=== PATIENT | female | born 1965 | race Caucasian/White ===

== ENCOUNTER → 2018-06-06 10:14 | Outpatient (CLI) | payer OTHER, SELFPAY ==
--- NOTE | 2018-06-06 | DI.RAD.S_ITS ---
PROCEDURE: XR CHEST 2V INDICATIONS: NEW COUGH TECHNIQUE: 2 views of the chest were acquired. COMPARISON: None. FINDINGS: Surgical changes and devices: None. Lungs and pleura: No pleural effusions or pneumothorax. Lungs are clear. Mediastinum: Mediastinal contours are normal. Heart size is normal. Bones and chest wall: No suspicious bony abnormalities. Soft tissues appear unremarkable. IMPRESSION: Normal for age, source of current symptoms is not seen. Dictated by: Tony Hutson M.D. on 06/06/2018 at 11:15 Approved by: Tony Hutson M.D. on 06/06/2018 at 11:15
== END ==
PROVIDERS: Visit Provider Internal Medicine Hematology & Oncology
DX: R05 Cough (principal)
CPT/HCPCS: 71046

== ENCOUNTER → 2019-05-13 09:32 | Outpatient (CLI) | payer OTHER, SELFPAY | PROVIDERS: Visit Provider Internal Medicine Hematology & Oncology | DX: C50.919 Malignant neoplasm of unspecified site of unspecified female breast (principal); Z78.0 Asymptomatic menopausal state; Z79.811 Long term (current) use of aromatase inhibitors | CPT/HCPCS: 77080 ==

== ENCOUNTER 2020-04-20 05:38 | Observation (INO) | payer OTHER, SELFPAY ==
[2020-04-20] VITALS (13 sets, daily range): BP systolic 129–209; BP diastolic 81–123; PULSE 54–80; RESP 16–22; TEMP 36.4–36.7; O2SAT 92–99; BMI 25.7
--- NOTE | 2020-04-20 05:40 | ED_ITS ---
HPI - Neuro Symptoms/Deficit General Chief Complaint: Neuro Symptoms/Deficit Stated Complaint: left side of face is numb, now on left arm Time Seen by Provider: 04/20/20 05:39 Source: patient and family Mode of arrival: Ambulatory Limitations: no limitations History of Present Illness HPI Narrative: 55-year-old female nonsmoker with noncontributory medical history presents with a chief complaint gradually worsening left-sided facial numbness since yesterday morning. It has spread and now includes her neck and much of her left arm. She denies other focal neurologic findings such as blurred vision or trouble with speech. She denies any trouble with balance or coordination, she has had no extremity weakness. She denies any headache or recent injury. She has had no neck pain or overuse activities involving her left arm, hand or wrist. She denies runny nose, sore throat or cough. She has had no dietary change. Her PCP is out of [place] Onset (ago): hour(s) Location: left face and left arm History of same: No Severity: moderate Quality: numb Relieving factors: none Exacerbating factors: none Context: gradual onset On Anticoagulants: No Associated symptoms: denies other symptoms Treatments Prior to Arrival: none Related Data Home Medications Medication Instructions Recorded Confirmed alprazolam 0.25 mg PO Q12HP #0 03/24/11 escitalopram oxalate [Lexapro] 5 mg PO Q DAY #0 03/24/11 ethynodiol diac-eth estradiol #0 03/24/11 [Zovia 1/35E (28)] Allergies Allergy/AdvReac Type Severity Reaction Status Date / Time No Known Drug Allergies Allergy Verified 04/20/20 06:09 Review of Systems Constitutional Constitutional: Denies chills, Denies fatigue, Denies fever(s), Denies frequent falls, Denies lethargy and Denies weakness Eyes Eyes: Denies change in vision, Denies eye discharge, Denies irritation and Denies loss of vision ENT Ears, Nose, Mouth, and Throat: Denies change in voice, Denies dizziness, Denies neck pain, Denies sore throat and Denies throat swelling Cardiovascular Cardiovascular: Denies chest pain, Denies irregular heart rhythm, Denies l ightheadedness, Denies palpitations, Denies dyspnea, Denies dyspnea on exertion and Denies orthopnea Respiratory Respiratory: Denies cough, Denies dyspnea, Denies dyspnea on exertion and Denies wheezing Gastrointestinal Gastrointestinal: Denies abdominal pain, Denies change in bowel habits, Denies diarrhea, Denies nausea and Denies vomiting Musculoskeletal Musculoskeletal: Denies neck pain and Reports numbness Integumentary/Breasts Skin/Breast: Denies pruritus, Denies erythema, Denies rash and Denies wounds Neurologic Neurologic: Denies behavioral changes, Denies confusion, Denies dizziness, Denies frequent falls, Denies loss of vision, Reports numbness and Denies weakness Psychiatric Psychiatric: Denies anxiety, Denies behavioral changes, Denies confusion, Denies depression, Denies homicidal ideation and Denies suicidal ideation Endocrine Endocrine: Denies fatigue, Denies flushing and Denies palpitations Hematologic/Lymphatic Hematologic/Lymphatic: Denies easy bruising Allergic/Immunologic Allergic/Immunologic: Denies urticaria, Denies throat swelling and Denies wheezing Patient History Social History Smoking Status: Never smoker Smoking Status: Never smoker alcohol intake frequency: 0-2 drinks per day Substance Use Type: does not use Exam Narrative Exam Narrative: GENERAL: [55] year old patient appears stated age. Well- nourished, well-developed patient, in mild distress. Anxious HEAD: Atraumatic. Normocephalic. EYES: Pupils equal round and reactive. Extraocular motions intact. No scleral icterus. No injection or drainage. ENT: Nose without bleeding, purulent drainage. Throat without erythema, tonsillar hypertrophy or exudate. Airway patent. NECK: Trachea midline. Non tender CARDIOVASCULAR: Regular rate and rhythm without murmurs, gallops, or rubs. RESPIRATORY: Clear to auscultation. Breath sounds equal bilaterally. No wheezes, rales, or rhonchi. GASTROINTESTINAL: Abdomen soft, non-tender, nondistended. EXTREMITIES: No edema or joint tenderness. BACK: Nontender without deformity or crepitance. No flank tenderness. NEURO: AOx3. SKIN: No rash or erythema of visible areas Initial Vital Signs Initial Vital Signs: Vital Signs Pulse Rate 63 04/20/20 05:44 Pulse Oximetry 96 04/20/20 05:44 Scores NIH Stroke Scale Level of Conciousness: Alert, keenly responsive Ask month/age: Answers both questions correctly. Open/close eyes, close hand: Performs both tasks correctly Best gaze horizontal: Normal Visual tam: No visual loss Facial palsy: Normal symetrical movement Left arm drift: No drift for full 10 sec Right arm drift: No drift for full 10 sec Left leg drift: No drift for full 10 sec Right leg drift: No drift for full 10 sec Limb ataxia: Absent Sensory on face/arms/legs: Mild to moderate sensory loss, can tell touch Best language: No aphasia, normal Dysarthria: Normal Extinction or inattention: No abnormality Total NIH Stroke scale score: 1 Course Course Course Narrative: patient not activated as code stroke as she is outside of TPA window and does not have significant LAMS score Orders Ordered: ED Orders 04/20/20 EKG-12 Lead Stat 04/20/20 05:50 Basic Metabolic Panel Stat Complete Blood Count AUTO DIFF Stat Partial Thromboplastin Time Stat Prothrombin Time INR Stat 04/20/20 05:58 CT head/brain wo con Stat EKG-12 Lead Stat 04/20/20 06:00 CT angio head and neck Stat 04/20/20 07:05 Urine Drug Screen, Rapid Stat Sodium Chloride (Normal Saline 0.9%) 1,000 mls @ 150 mls/hr IV CONT SCARLETT Last Admin: 04/20/20 06:08 Dose: 150 mls/hr Documented by: RAUL Discontinued Medications Aspirin (Aspirin Chew) 324 mg PO NOW ONE Stop: 04/20/20 06:01 Last Admin: 04/20/20 06:08 Dose: 324 mg Documented by: RAUL Vital Signs Vital signs: Vital Signs - 8 hr 04/20/20 05:44 04/20/20 05:46 04/20/20 05:55 Temperature 98.1 F Pulse Rate 63 63 59 L Respiratory Rate 18 20 Blood Pressure 209/112 H 174/99 H Pulse Oximetry 96 95 96 04/20/20 06:00 04/20/20 06:28 04/20/20 06:30 Temperature Pulse Rate 58 L 55 L 57 L Respiratory Rate 18 22 19 Blood Pressure 168/112 H 143/81 H 149/86 H Pulse Oximetry 95 95 94 04/20/20 07:00 Temperature Pulse Rate 55 L Respiratory Rate 18 Blood Pressure 144/87 H Pulse Oximetry 92 MDM - Neuro Symptoms/Deficit Lab Data Result diagrams: 04/20/20 05:50 04/20/20 05:50 Labs: Lab Results 04/20/20 04/20/20 04/20/20 Range/Units 05:50 05:50 05:50 WBC 4.4 L (4.5-11.0) X10^3/uL RBC 4.34 (4.0-5.2) X10^6/uL Hgb 14.3 (12.0-16.0) g/dL Hct 42.1 (36-46) % MCV 97.0 (80-100) fL MCH 32.9 (26-34) PG MCHC 33.9 (30-36) % RDW 12.8 (11.6-14.8) % Plt Count 217 (150-400) X10^3/uL Neut % (Auto) 29.7 L (50-75) % Lymph % (Auto) 56.3 H (25-40) % [place] % (Auto) 10.3 (3-14) % Eos % (Auto) 3.0 (2-4) % Baso % (Auto) 0.7 (0-2) % Neut # (Auto) 1300 L (8268-4507) /uL Lymph # (Auto) 2500 (6632-0031) /uL [place] # (Auto) 400 (0-900) /uL Eos # (Auto) 100 (0-450) /uL Baso # (Auto) 0 (0-100) /uL PT 10.9 (10.1-12.7) SECONDS INR 1.0 (0.9-1.3) APTT 34 (26.4-36.2) SECONDS Sodium 142 (137-145) mmol/L Potassium 4.2 (3.4-5.1) mmol/L Chloride 105 (98-107) mmol/L Carbon Dioxide 29 (22-32) mmol/L BUN 10 (7-17) mg/dL Creatinine 0.50 L (0.52-1.04) mg/dL Estimated GFR > 60.0 (>60) mL/min BUN/Creatinine Ratio 20.0 (6-22) Glucose 88 (70-100) mg/dL Calcium 9.9 (8.4-10.2) mg/dL U Opiates 300ng/mL cut (Negative) Ur Oxycodone Screen (Negative) Urine Methadone Screen (Negative) Ur Barbiturates Screen (Negative) U Tricyclic Antidepress (Negative) Ur Phencyclidine Scrn (Negative) Ur Amphetamines Screen (Negative) U Methamphetamines Scrn (Negative) Ur MDMA Scrn (Ecstasy) (Negative) U Benzodiazepines Scrn (Negative) Urine Cocaine Screen (Negative) U Marijuana (THC) Screen (Negative) 04/20/20 Range/Units 07:05 WBC (4.5-11.0) X10^3/uL RBC (4.0-5.2) X10^6/uL Hgb (12.0-16.0) g/dL Hct (36-46) % MCV (80-100) fL MCH (26-34) PG MCHC (30-36) % RDW (11.6-14.8) % Plt Count (150-400) X10^3/uL Neut % (Auto) (50-75) % Lymph % (Auto) (25-40) % [place] % (Auto) (3-14) % Eos % (Auto) (2-4) % Baso % (Auto) (0-2) % Neut # (Auto) (8589-3571) /uL Lymph # (Auto) (8788-8861) /uL [place] # (Auto) (0-900) /uL Eos # (Auto) (0-450) /uL Baso # (Auto) (0-100) /uL PT (10.1-12.7) SECONDS INR (0.9-1.3) APTT (26.4-36.2) SECONDS Sodium (137-145) mmol/L Potassium (3.4-5.1) mmol/L Chloride (98-107) mmol/L Carbon Dioxide (22-32) mmol/L BUN (7-17) mg/dL Creatinine (0.52-1.04) mg/dL Estimated GFR (>60) mL/min BUN/Creatinine Ratio (6-22) Glucose (70-100) mg/dL Calcium (8.4-10.2) mg/dL U Opiates 300ng/mL cut Negative (Negative) Ur Oxycodone Screen Negative (Negative) Urine Methadone Screen Negative (Negative) Ur Barbiturates Screen Negative (Negative) U Tricyclic Antidepress Negative (Negative) Ur Phencyclidine Scrn Negative (Negative) Ur Amphetamines Screen Negative (Negative) U Methamphetamines Scrn Negative (Negative) Ur MDMA Scrn (Ecstasy) Negative (Negative) U Benzodiazepines Scrn Negative (Negative) Urine Cocaine Screen Negative (Negative) U Marijuana (THC) Screen Negative (Negative) Point of Care Testing Glucose POC 90 Urine Dip Bedside Urine Glucose Negative Bedside Urine Bilirubin - Negative Bedside Urine Ketone - Negative Urine Specific [place] 1.010 Bedside Urine Occult Blood - Negative Bedside Urine pH 6.0 Bedside Urine Protein - Negative Bedside Urine Urobilinogen - Negative Bedside Urine Nitrite - Negative Bedside Urine Leukocytes - Negative Esterase Imaging Data CT scan - head: Attestation: I personally reviewed and interpreted this imaging study as follows: My Impression: No bleed Radiologist's Impression: NAP CTA Head/Neck: Radiologist's Impression: Normal CTA Head Normal CTA Neck Discharge Plan Departure Patient Disposition: Admitted as Observation Clinical Impression: Cerebrovascular accident
--- NOTE | 2020-04-20 05:58 | DI.CT.S_ITS ---
PROCEDURE: CT HEAD/BRAIN WO CON INDICATIONS: left face, neck, numbness TECHNIQUE: Noncontrast 4.5 mm thick angled axial sections acquired from the foramen magnum to the vertex, with coronal and sagittal reformats. For radiation dose reduction, the following was used: automated exposure control, adjustment of mA and/or kV according to patient size. COMPARISON: None. FINDINGS: Image quality: Excellent. CSF spaces: Basal cisterns are patent. No extra-axial fluid collections. The ventricles are symmetric in size and shape. Brain: No intracranial bleeds or masses. There is cerebral volume loss for age, with resultant ventricular and sulcal prominence. There are periventricular and deep white matter chronic small vessel ischemic changes. There is intracranial internal carotid artery atherosclerosis. Skull and face: Calvarium and visualized facial bones appear intact, without suspicious lesions. Sinuses: Visualized sinuses and mastoids are clear. IMPRESSION: No acute intracranial disease process. Dictated by: Vashti Corona MD, PhD on 04/20/2020 at 7:13 Approved by: Vashti Corona MD, PhD on 04/20/2020 at 7:14
--- NOTE | 2020-04-20 06:00 | DI.CT.S_ITS ---
PROCEDURE: CT ANGIO HEAD AND NECK INDICATIONS: left face, neck, numbness TECHNIQUE: Pre-contrast 4.5 mm thick sections acquired from the foramen magnum to the vertex. After the administration of intravenous contrast, 1 mm thick sections acquired from the aortic arch through the [place] of [place]. Post-contrast 4.5 mm thick sections then re-acquired from the foramen magnum to the vertex. 3-dimensional jshigbe-gefisawvb-iexpkvuktf (MIP) and/or volume rendering reformats were acquired of the central intracranial vasculature and neck separately. COMPARISON: [facility], CT, CT HEAD/BRAIN WO CON, 04/20/2020, 6:08. FINDINGS: Image quality: Excellent. BRAIN: CSF spaces: Ventricles are normal in size and shape. Basal cisterns are patent. No extra-axial fluid collections. Brain: No midline shift. No intracranial bleeds or masses. Shah-white matter interface appears intact. Skull and face: Calvarium and facial bones appear intact, without suspicious lesions. Orbits appear normal. Sinuses: Sinuses and mastoids are clear. HEAD CT ANGIOGRAPHY: Anterior circulation: Intracranial internal carotid arteries are normal in size and flow. The flow within the paired anterior cerebral arteries is normal and symmetric. The flow within the middle cerebral arteries is normal and symmetric. The anterior communicating artery is seen. No aneurysms are seen. Posterior circulation: Visualized portions of the vertebral arteries demonstrate normal caliber, and join to form a normal appearing basilar artery. Flow within the posterior cerebral arteries is normal and symmetric. No aneurysms are seen. Dural sinuses demonstrate normal postcontrast enhancement. NECK CT ANGIOGRAPHY: Carotid system: The great vessels demonstrate a conventional anatomy as they arise from the aortic arch. The origins of the common carotid arteries appear patent. The common carotid arteries demonstrate normal caliber and courses. The bifurcation regions are both widely patent. The internal carotid arteries demonstrate normal calibers. Incidental note made of a bilateral pharyngeal loops in the cervical segment of the vertebral arteries bilaterally. Posterior circulation: The origins of the vertebral arteries both appear widely patent. The more superior extracranial portions of both vertebral arteries also demonstrate normal courses and calibers. They join to form a normal appearing basilar artery. Soft tissues: Visualized neck soft tissues demonstrate no suspicious abnormalities. Bones: No suspicious bony lesions. Spine degenerative disc disease and facet arthropathy. Visualized cervical spine appears normally aligned. IMPRESSION: 1. No acute intracranial disease process. 2. No large vessel occlusion, hemodynamically significant vascular stenosis, vascular dissection or aneurysm. Any quantitative measurements of stenosis were performed using NASCET criteria. Dictated by: Vashti Corona MD, PhD on 04/20/2020 at 7:56 Approved by: Vashti Corona MD, PhD on 04/20/2020 at 8:03
[2020-04-20 06:04] LABS: Add Manual Diff / Slide Review NO; Basophils Absolute Auto 0 /uL (0-100); Basophils Percent Auto 0.7 % (0-2); Eosinophils Absolute Auto 100 /uL (0-450); Hematocrit 42.1 % (36-46); Hemoglobin 14.3 g/dL (12.0-16.0); Lymphocytes Absolute Auto 2500 /uL (1100-4500); Lymphocytes Percent Auto 56.3 % (25-40); Mean Corpuscular HGB Conc 33.9 % (30-36); Mean Corpuscular Hemoglobin 32.9 PG (26-34); Monocytes Absolute Auto 400 /uL (0-900); Monocytes Percent Auto 10.3 % (3-14); Neutrophils Absolute Auto 1300 /uL (1500-7000); Neutrophils Percent Auto 29.7 % (50-75); Platelet Count 217 X10^3/uL (150-400); Red Blood Cell Count 4.34 X10^6/uL (4.0-5.2); Red Cell Distribution Width 12.8 % (11.6-14.8); White Blood Cell Count 4.4 X10^3/uL (4.5-11.0)
[2020-04-20 06:06] LABS: Prothrombin Time 10.9 SECONDS (10.1-12.7)
[2020-04-20] MEDS: SODIUM CHLORIDE 0.9% 1,000 ML 150 ML IV (06:08)
[2020-04-20] MEDS: ASPIRIN 81 MG CHEW TAB 324 MG PO (06:08)
[2020-04-20 06:09] LABS: PTT Partial Thromboplastin Tim 34 SECONDS (26.4-36.2)
[2020-04-20 06:11] LABS: Blood Urea Nitrogen 10 mg/dL (7-17); Calcium 9.9 mg/dL (8.4-10.2); Carbon Dioxide 29 mmol/L (22-32); Chloride 105 mmol/L (98-107); Estimated Glomerular Filt Rate > 60.0 mL/min (>60); Glucose 88 mg/dL (70-100); HEMOLYSIS < 15 (0-50); Potassium 4.2 mmol/L (3.4-5.1); Sodium 142 mmol/L (137-145)
[2020-04-20 07:17] LABS: UR Morphine/Opiate cutoff 300 Negative (Negative); Ur Creatinine Normal (Normal); Ur Specific Gravity Normal (Normal); Urine Amphetamines Negative (Negative); Urine Barbiturates Negative (Negative); Urine Benzodiazepines Negative (Negative); Urine Cocaine Negative (Negative); Urine MDMA Negative (Negative); Urine Methadone Negative (Negative); Urine Methamphetamines Negative (Negative); Urine Oxycodone Negative (Negative); Urine Phencyclidine Negative (Negative); Urine Tetrahydrocannabinol Negative (Negative); Urine Tricyclic Antidepressant Negative (Negative); Urine pH Normal (Normal)
--- NOTE | 2020-04-20 07:55 | DI.MRI.S_ITS ---
PROCEDURE: MR STROKE Pre- and post-contrast brain MRI, non-contrast brain MR angiogram, pre- and postcontrast neck MR angiogram INDICATIONS: Left sided numbness of face and arm TECHNIQUE: Brain: Noncontrast axial T1 spin echo, axial T2 fast spin echo, sagittal and axial FLAIR, coronal T2 fast spin echo, axial gradient echo, axial diffusion and ADC through the brain. After the administration of contrast, axial 3D VIBE of the cranial vasculature and brain. Brain MRA: Non-contrast 3-D time of flight MR angiogram, with multiple mknnsyt-kcwakuuqr-digbiirihj (MIP) reformats performed. Neck MRA: Axial and sagittal TruFISP through the neck. Coronal dynamic MR angiogram during administration of contrast in the arterial and venous phases, with 3-dimenstional lxyrrnd-wnkjfiwpl-gblxwioqls (MIP) reformats constructed from subtraction images. COMPARISON: None. FINDINGS: Image quality: Excellent. BRAIN: CSF spaces: Ventricles are normal in size and shape. Basal cisterns are patent. No extra-axial fluid collections. Brain: No intracranial bleeds or mass effects. Shah-white matter interface is normal. Diffusion weighted images show no acute ischemic insults. Brainstem appears normal. Normal intravascular flow voids are present. No abnormal intracranial enhancement. Skull and face: Calvarial marrow signal is normal. Orbits appear normal. Sinuses: Sinuses demonstrate mild scattered frontal and ethmoid mucosal thickening. BRAIN MR ANGIOGRAM: Anterior circulation: The anterior circulation, including the anterior and middle cerebral arteries, as well as internal carotid arteries demonstrates no areas of hemodynamically significant stenosis, vascular occlusion or aneurysmal dilation. 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 Posterior circulation: The posterior circulation demonstrates vertebral artery co-dominance. Basilar artery and posterior cerebral arteries demonstrate no areas of hemodynamically significant stenosis, vascular occlusion or aneurysmal dilation. Posterior communicating arteries are within normal limits. NECK MR ANGIOGRAM: Carotids: The origins of the left and right common, internal and external carotid arteries demonstrate no areas of hemodynamically significant stenosis, vascular occlusion or aneurysmal dilation. Origins of the left and right vertebral arteries demonstrate no areas of hemodynamically significant stenosis, vascular occlusion or aneurysmal dilation. Aortic arch demonstrates conventional anatomy. Limited, visualized portions of the subclavian vasculature are unremarkable. IMPRESSION: 1. No acute intracranial process. 2. Minimal chronic microvascular ischemic changes. 3. No areas of hemodynamically significant stenosis, vascular occlusion or aneurysmal dilation within the anterior or posterior circulation. 4. No areas of hemodynamically significant stenosis, vascular occlusion or aneurysmal dilation within the neck vasculature. Dictated by: Ro Huitron M.D. on 04/20/2020 at 9:44 Approved by: Ro Huitron M.D. on 04/20/2020 at 9:48
--- NOTE | 2020-04-20 08:05 | PC.NURSE ---
Patient refusing Covid 19 swab. Repeatedly states No. I'm not having that done, turning head away from RN.
--- NOTE | 2020-04-20 09:22 | PC.NURSE ---
Day shift: Pt on unit from ED via MRI and technical buyer. Pt is A&Ox3. Steady on feet. Denies pain, chest pain or headache. Oriented to room and call light. Pt to be independent in room. Will inform MD that Pt is on unit at this time. Pt has refused the Covid 19 test at this time and in ED. Awaiting MRI results and MD orders. Pt instructed to use call liight if needing anything and Pt is agreeable to this.
[2020-04-20 11:45] LABS: COVID19 -Nasal RAPID Negative (Negative)
--- NOTE | 2020-04-20 13:03 | P.HP_ITS ---
History of Present Illness History of Present Illness Date Patient Seen: 04/20/20 Time Patient Seen: 11:30 Date of Onset of Symptoms: 04/19/20 Chief complaint: left side of face is numb, now on left arm Narrative: Liza whyte is a 55 year old female with PMH anxiety and depression, daily EtOH use who was admitted with left sided facial numbness that had been increasing since yesterday morning. Numbness started near her left ear then spre ad down to her neck. Thought it would go away but when she awoke this AM and the numbness was in her arm she came to the ER. The numbness did not spead to her tongue and she denied any weakness, numbness of her legs, slurred speech or facial droop. States it feels more tingly now and is slowly improving. She admitted to falling on a slippery floor onto her knees and outstretched arms now 3 days ago. She drinks approximately 2 beers nightly, no prior EtOH withdrawal symptoms before. Does admit to having chicken pox as a child, no shingles shot. Denies rash, fever, chills, headache, vision changes, chest pain, shortness of breath, nausea, vomiting, diarrhea, weight changes. Patient History Family & Social History Social History: household members other Prior Living Arrangements House Safety & Behavioral: Feels Safe in Current Yes Environment Been Physically Hurt or No Threatened By a Person Suicidal Ideation Description None Suicide Plan Description No Plan Tobacco & Substance use: Smoking Status Never smoker alcohol intake frequency 0-2 drinks per day Substance Use Type does not use Meds Home Medications and Allergies Home Medications Medication Instructions Recorded Confirmed Type alprazolam 0.25 mg PO Q12HP #0 03/24/11 History escitalopram oxalate [Lexapro] 5 mg PO Q DAY #0 03/24/11 History ethynodiol diac-eth estradiol #0 03/24/11 History [Zovia 35E (28)] aspirin 81 mg PO DAILY 30 Days #30 tab 04/20/20 Rx atorvastatin 40 mg PO BEDTIME 30 Days #30 tab 04/20/20 Rx Allergies Allergy/AdvReac Type Severity Reaction Status Date / Time No Known Drug Allergies Allergy Verified 04/20/20 06:09 Review of Systems Review of Systems ROS: Yes All systems reviewed with the patient and are negative except as otherwise documented Exam Vital Signs (past 8 hours): - 04/20/20 05:44 04/20/20 05:46 04/20/20 05:55 Temperature 98.1 F Pulse Rate 63 63 59 L Respiratory Rate 18 20 Blood Pressure 209/112 H 174/99 H Pulse Oximetry 96 95 96 04/20/20 06:00 04/20/20 06:28 04/20/20 06:30 Temperature Pulse Rate 58 L 55 L 57 L Respiratory Rate 18 22 19 Blood Pressure 168/112 H 143/81 H 149/86 H Pulse Oximetry 95 95 94 04/20/20 07:00 04/20/20 07:08 04/20/20 07:30 Temperature Pulse Rate 55 L 54 L 56 L Respiratory Rate 18 18 16 Blood Pressure 144/87 H 179/88 H 182/93 H Pulse Oximetry 92 94 93 04/20/20 08:00 04/20/20 09:40 Temperature 97.6 F Pulse Rate 61 67 Respiratory Rate 20 16 Blood Pressure 163/123 H 155/91 H Pulse Oximetry 94 95 Oxygen Delivery Method Room Air Oxygen Flow Rate 0 Narrative Exam Narrative: GENERAL APPEARANCE: Well developed, well nourished, in no acute distress. SKIN: Inspection of the skin reveals no rashes, ulcerations or petechiae. HEENT: Normocephalic atraumatic, extraocular muscles are intact, oropharynx is clear and mucous membranes are moist, neck is supple without adenopathy NECK: Supple and symmetric. There was no thyroid enlargement, and no tenderness, or masses were felt. CHEST: Normal AP diameter and normal contour without any kyphoscoliosis. LUNGS: Auscultation of the lungs revealed no wheezes, rhonchi, or rales. CARDIOVASCULAR: There was a regular rate and rhythm without any murmurs, gallops, rubs. Peripheral pulses were 2+ and symmetric. ABDOMEN: Soft and nontender with normal bowel sounds. No ascites was noted. MUSCULOSKELETAL: There was no tenderness or effusions noted. Muscle strength and tone were normal. Very tight left trapezius muscle and paraspinal musculature. Negative spurlings test. EXTREMITIES: No cyanosis, clubbing or edema. NEUROLOGIC: Alert and oriented x 3. Normal affect. Gait was normal. Strength is +5/5 in the Upper Extremities and Lower Extremities Bilaterally. Sensation to touch was reportedly diminished but not absent from her right upper arm but not distally, near her left ear and cheek but not more midline such as under her lip or eyebrow. Objective Labs Result Diagrams: 04/20/20 05:50 04/20/20 05:50 Labs: Laboratory Results - last 24 hr 04/20/20 04/20/20 04/20/20 05:50 05:50 05:50 WBC 4.4 L RBC 4.34 Hgb 14.3 Hct 42.1 MCV 97.0 MCH 32.9 MCHC 33.9 RDW 12.8 Plt Count 217 Neut % (Auto) 29.7 L Lymph % (Auto) 56.3 H [place] % (Auto) 10.3 Eos % (Auto) 3.0 Baso % (Auto) 0.7 Neut # (Auto) 1300 L Lymph # (Auto) 2500 [place] # (Auto) 400 Eos # (Auto) 100 Baso # (Auto) 0 PT 10.9 INR 1.0 APTT 34 Sodium 142 Potassium 4.2 Chloride 105 Carbon Dioxide 29 BUN 10 Creatinine 0.50 L Estimated GFR > 60.0 BUN/Creatinine Ratio 20.0 Glucose 88 Calcium 9.9 U Opiates 300ng/mL cut Ur Oxycodone Screen Urine Methadone Screen Ur Barbiturates Screen U Tricyclic Antidepress Ur Phencyclidine Scrn Ur Amphetamines Screen U Methamphetamines Scrn Ur MDMA Scrn (Ecstasy) U Benzodiazepines Scrn Urine Cocaine Screen U Marijuana (THC) Screen COVID-19 PCR 04/20/20 04/20/20 07:05 10:30 WBC RBC Hgb Hct MCV MCH MCHC RDW Plt Count Neut % (Auto) Lymph % (Auto) [place] % (Auto) Eos % (Auto) Baso % (Auto) Neut # (Auto) Lymph # (Auto) [place] # (Auto) Eos # (Auto) Baso # (Auto) PT INR APTT Sodium Potassium Chloride Carbon Dioxide BUN Creatinine Estimated GFR BUN/Creatinine Ratio Glucose Calcium U Opiates 300ng/mL cut Negative Ur Oxycodone Screen Negative Urine Methadone Screen Negative Ur Barbiturates Screen Negative U Tricyclic Antidepress Negative Ur Phencyclidine Scrn Negative Ur Amphetamines Screen Negative U Methamphetamines Scrn Negative Ur MDMA Scrn (Ecstasy) Negative U Benzodiazepines Scrn Negative Urine Cocaine Screen Negative U Marijuana (THC) Screen Negative COVID-19 PCR Negative Assessment & Plan Assessment & Plan narrative: 55 year old female who presented with facial and arm numbness a couple of days after a fall. 1. Left sided numbness - head CT and CTA unremarkable in the ER. Will rule out acute CVA with an MRI. Suspect musculoskeletal injury may be causing sensation abnormalities. There are no spinal issues noted on the initial imaging of her neck. - given 324 mg ASA in the ER. - NIHSS of 2 based on numbness symptoms only. - futher differentials include autoimmune process, but no other signs or symptoms. Nutritional deficiency although that would usually present with bilateral symptoms. Infectious process or shingles but there is no rash, fever, or obvious inflammation in that area. 2. elevated blood pressure without a diagnosis of hypertension - patient with elevated BP on admission. Will continue to follow. Continues to come down upon arrival to the floor without interventions. 3. EtOH use - patient drinks 2 beers nightly, suspect more. Will monitor for signs of symptoms of withdrawal and initiate CIWA accordingly. Code: Full, surrogate decision maker is the patient's . Dispo: admit under observation status.
--- NOTE | 2020-04-20 13:03 | PM.DS.1 ---
History of Present Illness History of Present Illness Date Patient Seen: 04/20/20 Time Patient Seen: 13:03 Chief complaint: left side of face is numb, now on left arm Narrative: Liza whyte is a 55 year old female with PMH anxiety and depression, daily EtOH use who was admitted with left sided facial numbness that had been increasing since yesterday morning. Numbness started near her left ear then spread down to her neck. Thought it would go away but when she awoke this AM and the numbness was in her arm she came to the ER. The numbness did not spead to her tongue and she denied any weakness, numbness of her legs, slurred speech or facial droop. States it feels more tingly now and is slowly improving. She admitted to falling on a slippery floor onto her knees and outstretched arms now 3 days ago. She drinks approximately 2 beers nightly, no prior EtOH withdrawal symptoms before. Does admit to having chicken pox as a child, no shingles shot. Denies rash, fever, chills, headache, vision changes, chest pain, shortness of breath, nausea, vomiting, diarrhea, weight changes. Discharge Providers Provider Date of admission: 04/20/20 07:54 Discharge Date: 04/20/20 Discharge provider: Conor Gusman DO Summary Hospital Course Discharge Diagnosis: 1. Left sided numbness, acute, present on admission 2. elevated blood pressure without a diagnosis of hypertension, present on admission 3. EtOH use, present on admission Hospital Course: Patient is a 55 year old female with PMH of anxiety, depression and EtOH use who present with left facial and arm numbness. Symptoms waxed and waned over the course of her stay. CT head, CTA head and neck, and MRI were all completely unremarkable. Patient was offered additional monitoring overnight to see if progression of symptoms but wanted to go home with precautions. Given negative MRI and distribution of numbness that does not extend over her entire facial nerve or in a dermatomal fashion I suspect this to be related to her fall several days prior and a musculoskeletal injury as that area was extremely tense and mildly tender. She was not interested in starting an antihypertensive and will follow up with her PCP next week. She was started on a baby aspirin and statin for an abundance of precaution given the presentation. I recommended that if symptoms continue she can seek out neurology evaluation via her PCP and that is she were to develop worsening symptoms or weakness or facial droop she return to the ER. She had no difficulties tolerating lunch and showed no other evidence of neurological involvement. She was discharged home with plan for PCP follow up in [place]. Exam Vital Signs (past 8 hours): - 04/20/20 05:44 04/20/20 05:46 04/20/20 05:55 Temperature 98.1 F Pulse Rate 63 63 59 L Respiratory Rate 18 20 Blood Pressure 209/112 H 174/99 H Pulse Oximetry 96 95 96 04/20/20 06:00 04/20/20 06:28 04/20/20 06:30 Temperature Pulse Rate 58 L 55 L 57 L Respiratory Rate 18 22 19 Blood Pressure 168/112 H 143/81 H 149/86 H Pulse Oximetry 95 95 94 04/20/20 07:00 04/20/20 07:08 04/20/20 07:30 Temperature Pulse Rate 55 L 54 L 56 L Respiratory Rate 18 18 16 Blood Pressure 144/87 H 179/88 H 182/93 H Pulse Oximetry 92 94 93 04/20/20 08:00 04/20/20 09:40 Temperature 97.6 F Pulse Rate 61 67 Respiratory Rate 20 16 Blood Pressure 163/123 H 155/91 H Pulse Oximetry 94 95 Oxygen Delivery Method Room Air Oxygen Flow Rate 0 Narrative Exam Narrative: GENERAL APPEARANCE: Well developed, well nourished, in no acute distress. SKIN: Inspection of the skin reveals no rashes, ulcerations or petechiae. HEENT: Normocephalic atraumatic, extraocular muscles are intact, oropharynx is clear and mucous membranes are moist, neck is supple without adenopathy NECK: Supple and symmetric. There was no thyroid enlargement, and no tenderness, or masses were felt. CHEST: Normal AP diameter and normal contour without any kyphoscoliosis. LUNGS: Auscultation of the lungs revealed no wheezes, rhonchi, or rales. CARDIOVASCULAR: There was a regular rate and rhythm without any murmurs, gallops, rubs. Peripheral pulses were 2+ and symmetric. ABDOMEN: Soft and nontender with normal bowel sounds. No ascites was noted. MUSCULOSKELETAL: There was no tenderness or effusions noted. Muscle strength and tone were normal. Very tight left trapezius muscle and paraspinal musculature. Negative spurlings test. EXTREMITIES: No cyanosis, clubbing or edema. NEUROLOGIC: Alert and oriented x 3. Normal affect. Gait was normal. Strength is +5/5 in the Upper Extremities and Lower Extremities Bilaterally. Sensation to touch was reportedly diminished but not absent from her right upper arm but not distally, near her left ear and cheek but not more midline such as under her lip or eyebrow. Objective Labs Result Diagrams: 04/20/20 05:50 04/20/20 05:50 Labs: Laboratory Results - last 24 hr 04/20/20 04/20/20 04/20/20 05:50 05:50 05:50 WBC 4.4 L RBC 4.34 Hgb 14.3 Hct 42.1 MCV 97.0 MCH 32.9 MCHC 33.9 RDW 12.8 Plt Count 217 Neut % (Auto) 29.7 L Lymph % (Auto) 56.3 H [place] % (Auto) 10.3 Eos % (Auto) 3.0 Baso % (Auto) 0.7 Neut # (Auto) 1300 L Lymph # (Auto) 2500 [place] # (Auto) 400 Eos # (Auto) 100 Baso # (Auto) 0 PT 10.9 INR 1.0 APTT 34 Sodium 142 Potassium 4.2 Chloride 105 Carbon Dioxide 29 BUN 10 Creatinine 0.50 L Estimated GFR > 60.0 BUN/Creatinine Ratio 20.0 Glucose 88 Calcium 9.9 U Opiates 300ng/mL cut Ur Oxycodone Screen Urine Methadone Screen Ur Barbiturates Screen U Tricyclic Antidepress Ur Phencyclidine Scrn Ur Amphetamines Screen U Methamphetamines Scrn Ur MDMA Scrn (Ecstasy) U Benzodiazepines Scrn Urine Cocaine Screen U Marijuana (THC) Screen COVID-19 PCR 04/20/20 04/20/20 07:05 10:30 WBC RBC Hgb Hct MCV MCH MCHC RDW Plt Count Neut % (Auto) Lymph % (Auto) [place] % (Auto) Eos % (Auto) Baso % (Auto) Neut # (Auto) Lymph # (Auto) [place] # (Auto) Eos # (Auto) Baso # (Auto) PT INR APTT Sodium Potassium Chloride Carbon Dioxide BUN Creatinine Estimated GFR BUN/Creatinine Ratio Glucose Calcium U Opiates 300ng/mL cut Negative Ur Oxycodone Screen Negative Urine Methadone Screen Negative Ur Barbiturates Screen Negative U Tricyclic Antidepress Negative Ur Phencyclidine Scrn Negative Ur Amphetamines Screen Negative U Methamphetamines Scrn Negative Ur MDMA Scrn (Ecstasy) Negative U Benzodiazepines Scrn Negative Urine Cocaine Screen Negative U Marijuana (THC) Screen Negative COVID-19 PCR Negative Discharge Plan Discharge Plan Patient Disposition: Home Discharge comment: You were admitted to the hospital briefly for further evaluation of left arm and facial numbness. Your MRI was negative for stroke. This may be secondary to musculoskeletal issues after a fall. Please follow up with your primary care provider if symptoms continue for further evaluation with neurology. Discharge orders & Medications Prescriptions: New aspirin 81 mg tablet,delayed release (DR/EC) 81 mg PO DAILY 30 Days Qty: 30 RF: 0 atorvastatin 40 mg tablet 40 mg PO BEDTIME 30 Days Qty: 30 RF: 0 Continued ethynodiol diac-eth estradiol [Zovia 1/35E (28)] 1 MG/35 MCG tablet Qty: 0 RF: 0 escitalopram oxalate [Lexapro] 5 MG tablet 5 mg PO Q DAY Qty: 0 RF: 0 alprazolam 0.25 MG tablet 0.25 mg PO Q12HP Qty: 0 RF: 0 Diet/Activity/Treatments Diet: Diet as Tolerated Activity: As tolerated Visit Report/Discharge Packet Instructions: Transient Ischemic Attack, Ischemic Stroke, High Cholesterol, How to Prevent Falls, Atorvastatin, DI for High Cholesterol-Adult Visit Report Forms: Patient Portal/API, Stroke Signs & Symptoms Discharge Data Attending Provider: Conor Gusman Admit Date/Time: 04/20/20 07:54 Discharges patient from system. Discharge Date/Time: 04/20/20 13:34
--- NOTE | 2020-04-20 13:33 | PC.NURSE ---
Day shift: Paperwork signed and all questions answered. Pt has all personal belongings and MD scripts sent to Pt's pharmacy by MD electronic.
== END 2020-04-20 13:34 | disposition home or self-care (01) ==
LOC: ED 07:46 → AC 07:54
PROVIDERS: Admitting Provider Internal Medicine; Emergency Provider Emergency Medicine; Visit Provider Internal Medicine
DX: R20.0 Anesthesia of skin (principal); R03.0 Elevated blood-pressure reading, without diagnosis of hypertension; F10.20 Alcohol dependence, uncomplicated; Z11.59 Encounter for screening for other viral diseases
CPT/HCPCS: 36415; 70450; 70496; 70498; 70548; 70553; 80048; 80305; 81003; 82962; 85025; 85610; 85730; 87635; 93005; 96360; 96361; 99285; G0378; Q9967

== ENCOUNTER → 2020-10-14 15:43 | Outpatient (CLI) | payer OTHER, SELFPAY ==
[2020-04-20 09:31] VITALS: BMI 25.7
[2020-10-14 16:47] LABS: Alanine Aminotransferase 37 IU/L (<35); Albumin 4.4 g/dL (3.5-5.0); Albumin Globulin Ratio 1.6 (1.0-2.8); Alkaline Phosphatase 87 U/L (38-126); Aspartate Aminotransferase 34 IU/L (14-36); Bilirubin Total 1.5 mg/dL (0.2-1.3); Blood Urea Nitrogen 16 mg/dL (7-17); Calcium 9.8 mg/dL (8.4-10.2); Carbon Dioxide 30 mmol/L (22-32); Chloride 99 mmol/L (98-107); Estimated Glomerular Filt Rate > 60.0 mL/min (>60); Globulin 2.8 g/dL (1.7-4.1); Glucose 99 mg/dL (70-100); HEMOLYSIS < 15 (0-50); Potassium 4.1 mmol/L (3.4-5.1); Sodium 136 mmol/L (137-145); Total Protein 7.2 g/dL (6.3-8.2)
[2020-10-14 17:03] LABS: Progesterone, Total 0.43 ng/mL
[2020-10-14 17:04] LABS: T4 Total Thyroxine 6.53 ug/dL (5.5-11.0); Vitamin D 25 Hydroxy (D3) 95.5 ng/mL (30.0-100.0)
[2020-10-14 17:36] LABS: Vitamin B12 846 pg/mL (239-931)
[2020-10-15 06:08] LABS: Triiodothyronine T3 Total 87 ng/dL (71-180)
[2020-10-16 19:55] LABS: Vitamin B6 20.2 ug/L (2.0-32.8)
[2020-10-17 19:36] LABS: Estrogen 26 pg/mL (.)
[2020-10-20 02:07] LABS: Percent Free Testosterone 2.93 % (0.50-2.80); Testosterone Free 0.23 ng/dL (0.10-0.85); Testosterone Total 7.8 ng/dL (.)
== END ==
DX: R79.89 Other specified abnormal findings of blood chemistry (principal); N95.1 Menopausal and female climacteric states; R53.83 Other fatigue; Z67.30 Type AB blood, Rh positive; E67.3 Hypervitaminosis D
CPT/HCPCS: 36415; 80053; 82306; 82607; 82672; 84144; 84207; 84402; 84403; 84436; 84443; 84480

== ENCOUNTER → 2021-07-07 10:32 | Outpatient (CLI) | payer OTHER, SELFPAY ==
[2020-04-20 09:31] VITALS: BMI 25.7
[2021-07-07 12:39] LABS: COVID19 -Nasal RAPID POSITIVE (Negative)
== END ==
PROVIDERS: Visit Provider Physician Assistant
DX: U07.1 COVID-19 (principal)
CPT/HCPCS: 87635

== ENCOUNTER → 2022-10-03 14:46 | Outpatient (CLI) | payer OTHER, SELFPAY ==
[2020-04-20 09:31] VITALS: BMI 25.7
--- NOTE | 2022-10-03 | DI.US.S_ITS ---
PROCEDURE: US EXTREMITY NONVASC UPPER LT INDICATIONS: SUPERFICIAL FOREIGN BODY IN HAND TECHNIQUE: Real-time scanning was performed of the left hand, with image documentation. COMPARISON: None. FINDINGS: Focused ultrasound examination of left palm soft tissue shows no soft tissue mass or fluid collection. No obvious foreign body is noted. IMPRESSION: No gross foreign body is seen in left hand soft tissue. No soft tissue mass or fluid collection. Dictated by: Prince Duarte M.D. on 10/03/2022 at 17:21 Approved by: Prince Duarte M.D. on 10/03/2022 at 17:23
== END ==
PROVIDERS: Referring Provider Orthopaedic Surgery Hand Surgery; Visit Provider Orthopaedic Surgery Hand Surgery
DX: S60.552A Superficial foreign body of left hand, initial encounter (principal)
CPT/HCPCS: 76882

== ENCOUNTER 2023-05-02 01:12 | Emergency (ER) | payer OTHER, SELFPAY ==
[2020-04-20 09:31] VITALS: BMI 25.7
--- NOTE | 2023-05-02 01:20 | DI.RAD.S_ITS ---
PROCEDURE: XR ANKLE LT 2V INDICATIONS: injury TECHNIQUE: 2 views of the ankle were acquired. COMPARISON: None. FINDINGS: Bones: There are mildly displaced fractures of the medial and posterior malleoli of the distal tibia. Fractures extend to the ankle mortise which demonstrates mild widening medially. No suspicious bony lesions. Soft tissues: There is a small tibiotalar joint effusion. Periarticular soft tissue swelling demonstrated at the ankle. Achilles tendon appears normal. IMPRESSION: 1. Mildly displaced fractures of the medial and posterior malleoli. Dictated by: Vinh Ludwig M.D. on 05/02/2023 at 2:19 Approved by: Vinh Ludwig M.D. on 05/02/2023 at 2:20
--- NOTE | 2023-05-02 01:20 | DI.RAD.S_ITS ---
PROCEDURE: XR TIBIA FIBULA LT 2V INDICATIONS: injury TECHNIQUE: 2 views of the tibia and fibula were acquired. COMPARISON: [facility], CR, XR ANKLE LT 2V, 05/02/2023, 1:19. FINDINGS: Bones: There is a minimally displaced fracture of the proximal fibular shaft. Mildly displaced fractures of the medial and posterior malleoli of the distal tibia extending to the tibiotalar joint are present. Soft tissues: No suspicious soft tissue calcifications or masses. IMPRESSION: 1. Minimally displaced proximal fibular fracture. 2. Mildly displaced fractures of the medial and posterior malleoli of the distal tibia. Dictated by: Vinh Ludwig M.D. on 05/02/2023 at 2:20 Approved by: Vinh Ludwig M.D. on 05/02/2023 at 2:22
[2023-05-02 01:22] VITALS: BP 154/85; PULSE 86; RESP 18; TEMP 36.6; O2SAT 94; BMI 25.8
--- NOTE | 2023-05-02 02:02 | ED.LOWEXIN ---
HPI - Extremity Injury (Lower) General Chief Complaint: Extremity Injury, Lower Stated Complaint: possible broken left ankle Time Seen by Provider: 05/02/23 02:01 Source: patient Mode of arrival: Wheelchair History of Present Illness HPI Narrative: Patient 58-year-old female without past medical history presenting today with left ankle pain. She reports that she was in the garden earlier when she twisted it some how she does not remember got up walked inside the house was able to go to bed and now is in excruciating pain and unable to bear weight. She admits that she was drinking alcohol, wine. Denies numbness or tingling no other injury. Related Data Home Medications Medication Instructions Recorded Confirmed alprazolam 0.25 mg tablet 0.25 mg PO Q12HP ##0 03/24/11 07/07/21 escitalopram oxalate 5 mg tablet 5 mg PO Q DAY ##0 03/24/11 07/07/21 (Lexapro) ethynodiol diacetate-ethinyl ##0 03/24/11 07/07/21 estradiol 1 mg-35 mcg tablet (Zovia) Previous Rx's Medication Instructions Recorded hydrocodone 5 mg-acetaminophen 325 1 tab PO Q6H PRN pain #10 tabs 05/02/23 mg tablet Allergies Allergy/AdvReac Type Severity Reaction Status Date / Time No Known Drug Allergies Allergy Verified 04/20/20 06:09 Review of Systems Review of Systems ROS Unobtainable: All systems reviewed & are unremarkable except as noted in HPI and below Patient History Social History household members: other Smoking Status: Never smoker Smoking Status: Never smoker alcohol intake frequency: 0-2 drinks per day Substance Use Type: does not use Exam Initial Vital Signs Initial Vital Signs: Vital Signs Temperature 98 F 05/02/23 01:22 Pulse Rate 86 05/02/23 01:22 Respiratory Rate 18 05/02/23 01:22 Blood Pressure 154/85 H 05/02/23 01:22 Pulse Oximetry 94 05/02/23 01:22 Oxygen Delivery Method Room Air 05/02/23 01:22 GENERAL: Alert 58-year-old female appears in pain CARDIOVASCULAR: peripheral pulses in tact, cap refill <2 sec RESPIRATORY: No respiratory distress, speaks in full sentences without difficulty EXTREMITIES: Normal range of motion, no clubbing or edema. Neurovascularly intact Left lower extremity knee is stable within normal limits tender around fibular head distal pedal pulse intact Achilles intact Tender medial malleoli NEUROLOGICAL: Cranial nerves II through XII grossly intact. Normal gait and speech. SKIN: Warm, dry, no petechiae, no rashes or lesions. Procedures Orthopedic Splinting/Casting Injury #1: Lower Extremity Injury Location: lower leg Lower Extremity Immobilizer: posterior splint and stirrup splint Other Orthopedic Equipment: crutches Post splinting neuro exam: intact and no change Post splinting vascular exam: no change Course Orders Ordered: ED Orders 05/02/23 01:20 XR ankle LT 2V Stat XR tibia fibula LT 2V Stat Discontinued Medications Hydrocodone Bitart/Acetaminophen (Hydrocodone/Acet 5/325 Tablet) 2 tab PO NOW ONE Stop: 05/02/23 02:09 Last Admin: 05/02/23 02:15 Dose: 2 tab Documented By: BERE Hydrocodone Bitart/Acetaminophen (Hydrocodone/Acet 5/325 Prepack) 1 bottle MISC SEEINSTR ONE Stop: 05/02/23 02:55 Last Admin: 05/02/23 03:04 Dose: 1 bottle Documented By: BERE Hydromorphone HCl (Hydromorphone 1 Mg Inj) 1 mg SUBCUT NOW ONE Stop: 05/02/23 02:36 Last Admin: 05/02/23 02:39 Dose: 1 mg Documented By: BERE Vital Signs Vital signs: Vital Signs - 8 hr 05/02/23 01:22 05/02/23 03:26 Temperature 98 F 97.8 F Pulse Rate 86 84 Respiratory Rate 18 18 Blood Pressure 154/85 H 144/82 H Pulse Oximetry 94 98 Oxygen Delivery Method Room Air Room Air MDM - Extremity Injury (Lower) Imaging Data Extremity x-ray #1: Radiologist's Impression: PROCEDURE:? XR ANKLE LT 2V ? INDICATIONS:? injury ? TECHNIQUE:? 2 views of the ankle were acquired.? ? COMPARISON:? None. ? FINDINGS:? ? Bones:? There are mildly displaced fractures of the medial and posterior malleoli of the distal tibia.? Fractures extend to the ankle mortise which demonstrates mild widening medially.? No suspicious bony lesions.? ? Soft tissues:? There is a small tibiotalar joint effusion.? Periarticular soft tissue swelling demonstrated at the ankle.? Achilles tendon appears normal.? ? ? IMPRESSION:? ? 1. Mildly displaced fractures of the medial and posterior malleoli.? ? ? Dictated by: Vinh Ludiwg M.D. on 05/02/2023 at 2:19 ? Extremity x-ray #2: Radiologist's Impression: PROCEDURE:? XR TIBIA FIBULA LT 2V ? INDICATIONS:? injury ? TECHNIQUE:? 2 views of the tibia and fibula were acquired.? ? COMPARISON:? [facility], CR, XR ANKLE LT 2V, 05/02/2023, 1:19. ? FINDINGS:? ? Bones:? There is a minimally displaced fracture of the proximal fibular shaft.? Mildly displaced fractures of the medial and posterior malleoli of the distal tibia extending to the tibiotalar joint are present. ? Soft tissues:? No suspicious soft tissue calcifications or masses.? ? IMPRESSION:? ? 1. Minimally displaced proximal fibular fracture. ? 2. Mildly displaced fractures of the medial and posterior malleoli of the distal tibia.? ? Dictated by: Vinh Ludwig M.D. on 05/02/2023 at 2:20 ? ? Approved by: Vinh Ludwig M.D. on 05/02/2023 at 2:22 ? [facility] Narrative Medical decision making narrative: Patient 58-year-old female presents today with significant left ankle pain and fracture. She reports that she ambulated on it immediately after happened I suspect he was quite intoxicated when this happened. She is easily splinted by nursing staff re-evaluated by myself. She received Dilaudid subcutaneously along with [place]. Recommend close outpatient follow-up. Instructed her to elevate and ice as possible. Discharge Plan Departure Patient Disposition: Home Clinical Impression: Ankle fracture, left, Fracture of left proximal fibula Instructions: DI for Ankle Fracture Activity Restrictions/Additional Instructions: *You have been diagnosed with left ankle fracture *What to do: You will likely require surgery. Elevate as often as possible and ice as often as possible. The swelling definitely cause increase in pain. No weight-bearing use crutches at all times. Keep splint on at all times. *Continue to take medications as directed--> [facility] [place] 1 tablet every 4 hours or 2 tablets every 6 hours if needed for severe pain Motrin 600 mg every 6 hours needed for [id number] pain *Follow up with your primary care provider in 2-3 days or call [phone] Call orthopedics tomorrow 1st thing to schedule follow-up appointment. *Return to ER if you should have increasing pain numbness tingling weak [or] any new, worsening or concerning symptoms CONTROLLED SUBSTANCE DISCHARGE (Narcotoic/benzodiazepine/Flexeril/Phenergan) 1. You have been prescribed narcotic medications, it does have acetaminophen/Tylenol/paracetamol in it, DO NOT TAKE MORE THAN 4,00mg in 24 hours of Tylenol. TRAMADOL DOES NOT CONTAIN TYLENOL 2. Please understand that we cannot provide further refills of narcotics, benzodiazepines or controlled substances through the ED and her pain management will need to be through your provider. 3. While on these medications you cannot drive or operate heavy machinery. 4. You cannot sign legal documents or perform any duties such as this. 5. As long as you're taking opiate pain medications he should also be taking a stool softener such as Colace, Dulcolax, MiraLAX or prune juice, to help avoid constipation. Prescriptions: New hydrocodone-acetaminophen 5-325 mg tablet 1 tab PO Q6H PRN (Reason: pain) Qty: 10 0RF No Action ethynodiol diac-eth estradiol [Zovia ()] 1 MG/35 MCG tablet Qty: 0 escitalopram oxalate [Lexapro] 5 MG tablet 5 mg PO Q DAY Qty: 0 alprazolam 0.25 MG tablet 0.25 mg PO Q12HP Qty: 0 Referrals: [facility] [Provider Group] Monika Bustillo ARNP [Primary Care Provider] - Stand Alone Forms: Patient Portal/API
[2023-05-02] MEDS: HYDROCODONE/ACET 5/325 TABLET 2 TAB PO (02:15)
[2023-05-02] MEDS: HYDROMORPHONE 1 MG INJ SUBCUT (02:39)
[2023-05-02] MEDS: HYDROCODONE/ACET 5/325 PREPACK 1 BOTTLE MISC (03:04)
[2023-05-02 03:26] VITALS: BP 144/82; PULSE 84; RESP 18; TEMP 36.6; O2SAT 98
== END 2023-05-02 03:20 | disposition home or self-care (01) ==
PROVIDERS: Emergency Provider Emergency Medicine
DX: S82.892A Other fracture of left lower leg, initial encounter for closed fracture (principal); S82.402A Unspecified fracture of shaft of left fibula, initial encounter for closed fracture; X50.1XXA Overexertion from prolonged static or awkward postures, initial encounter
CPT/HCPCS: 29515; 73590; 73600; 96372; 99283; J1170

== ENCOUNTER 2023-05-14 01:39 | Inpatient (IN) | payer OTHER, SELFPAY ==
[2020-04-20 09:31] VITALS: BMI 25.7
[2023-05-14] VITALS (40 sets, daily range): BP systolic 73–114; BP diastolic 47–69; PULSE 67–111; RESP 12–29; TEMP 36.2–36.8; O2SAT 89–98; BMI 25.8
--- NOTE | 2023-05-14 01:48 | DI.CT.S_ITS ---
PROCEDURE: CT ABDOMEN PELVIS W CON INDICATIONS: Weakness; diverticulitis; GI bleed, hematochezia. TECHNIQUE: After the administration of intravenous contrast, axial sections acquired from the lung bases to the pubic symphysis. Coronal and sagittal reformats were performed. For radiation dose reduction, the following was used: automated exposure control, adjustment of mA and/or kV according to patient size. COMPARISON: [facility], CT, ABDOMEN/PELVIS WITH CONTRAST, 10/07/2007, 14:57. FINDINGS: Image quality: Excellent. Lung bases: Unremarkable. Heart: No significant findings. ABDOMEN: Liver: Unremarkable. Gallbladder: Unremarkable. Biliary ducts: Unremarkable. Pancreas: Unremarkable. Spleen: Unremarkable. Adrenal Glands: Unremarkable. Kidneys and Ureters: Unremarkable. Stomach and Bowel: Stomach and small bowel are within normal limits. Appendix is not seen. No evidence of appendicitis. Colon is nondistended. Diverticulosis throughout the colon is present. There is thickening and surrounding fat stranding involving the splenic flexure of colon, as well as the descending and proximal sigmoid colon. No pericolonic abscess. Peritoneum: No pneumoperitoneum. Small amount of free fluid in the pelvis. Ventral Wall: 30 mm fat containing umbilical hernia. Abdominal Nodes: No retroperitoneal or mesenteric adenopathy by size criteria. Vessels: Aorta and inferior vena cava are normal in size. PELVIS: Pelvic Organs: Unremarkable. Bladder: Unremarkable. Pelvic Nodes: No enlarged lymph nodes. Miscellaneous: No hernias are seen. Bones: Unremarkable. IMPRESSION: 1. Diverticulitis of the colon as described above. Follow-up colonoscopy is recommended to exclude underlying neoplasm. 2. Small amount of free fluid in the pelvis. Dictated by: Bryce Nicole M.D. on 05/14/2023 at 8:59 Approved by: Bryce Nicole M.D. on 05/14/2023 at 9:01
--- NOTE | 2023-05-14 01:49 | ED_ITS ---
HPI - GI Bleed General Chief complaint: GI Bleed Stated complaint: weakness, GI bleed Time Seen by Provider: 05/14/23 01:40 History of Present Illness HPI Narrative: 58-year-old woman with a history of anxiety and depression otherwise healthy until earlier this week when she fell and broke her left ankle and tibia underwent surgical intervention and has a cast in place. She is been taking oxycodone and Tylenol to help with the pain related to her recent surgery. She was also diagnosed with acute diverticulitis and is currently on antibiotics for such. She has had previous episodes of diverticulitis. Today she is been having increasing nausea with vomiting mostly clear fluids no blood. Her left lower quadrant pain has increased significantly and she is had 3 episodes of sherly ght red blood per rectum each associated with watery brown diarrhea. With the most recent episode she felt that she was going to pass out while sitting on the toilet became tachycardic, tachypneic, diaphoretic and called 911 to be transported to the emergency department. She does not describe fevers, cough, chest pain, palpitations. Related Data Home Medications Medication Instructions Recorded Confirmed alprazolam 0.25 mg tablet 0.25 mg PO Q12HP ##0 03/24/11 07/07/21 escitalopram oxalate 5 mg tablet 5 mg PO Q DAY ##0 03/24/11 07/07/21 (Lexapro) ethynodiol diacetate-ethinyl ##0 03/24/11 07/07/21 estradiol 1 mg-35 mcg tablet (Zovia) Previous Rx's Medication Instructions Recorded hydrocodone 5 mg-acetaminophen 325 1 tab PO Q6H PRN pain #10 tabs 05/02/23 mg tablet Allergies Allergy/AdvReac Type Severity Reaction Status Date / Time No Known Drug Allergies Allergy Verified 04/20/20 06:09 Review of Systems Review of Systems Narrative: Pertinent positive and negative findings as per HPI Patient History Medical History Ankle fracture, left Cerebrovascular accident History of diverticulitis of colon Social History household members: other Smoking Status: Never smoker Smoking Status: Never smoker alcohol intake frequency: 0-2 drinks per day Substance Use Type: does not use Exam Initial Vital Signs Initial Vital Signs: Vital Signs Temperature 97.8 F 05/14/23 01:46 Pulse Rate 102 H 05/14/23 01:46 Respiratory Rate 16 05/14/23 01:46 Blood Pressure 95/65 05/14/23 01:46 Pulse Oximetry 98 05/14/23 01:46 Oxygen Delivery Method Room Air 05/14/23 01:46 General: Pale, diaphoretic, Able to give a complete and coherent history. Well-nourished well-developed HEENT: Moist mucous membranes, normal sclera with reactive pupils, Respiratory: Lungs are clear to auscultation, no wheezing no rales no rhonchi. Full and symmetrical air movement Cardiac: Tachycardic but otherwise Regular rate and rhythm no murmurs no bruits Abdomen: Significant tenderness in the left lower quadrant with some guarding, hyperactive bowel tones, left flank pain radiating into the left lower quadrant. Skin: Pale and diaphoretic, lips and buccal mucosa quite pale, no rashes Neurologic: Grossly neurologically intact with no obvious asymmetries or abnormalities Extremities: Cast in place the left lower extremity with surgical Betadine stains still notable, well perfused Psych: Cooperative, appropriate insight and affect Course Orders Ordered: ED Orders 05/14/23 01:45 Complete Blood Count AUTO DIFF Stat Comprehensive Metabolic Panel Stat Lactate (Lactic Acid) Stat Type and Screen Stat 05/14/23 01:48 CT abdomen pelvis w con Stat Urinalysis and Microscopic Stat 05/14/23 02:30 Blood Culture Stat 05/14/23 03:55 Hemoglobin and Hematocrit Stat Lactate (Lactic Acid) Stat Acetaminophen (Acetaminophen 325 Mg Tablet) 650 mg PO Q4H PRN PRN Reason: Fever/Mild Pain (1-3) Alprazolam (Alprazolam 0.25 Mg Tablet) 0.25 mg PO Q12HP SCARLETT Escitalopram Oxalate (Escitalopram 10 Mg Tablet) 5 mg PO DAILY SCARLETT Hydromorphone HCl (Hydromorphone 0.5 Mg Inj) 0.5 mg IV Q2H PRN PRN Reason: Pain, Severe (7-10) Piperacillin Sod/Tazobactam (Sod 3.375 gm/ Sodium Chloride) 100 mls @ 25 mls/hr IV Q8H SCARLETT Naloxone HCl (Naloxone 0.4 Mg/Ml Vial) 0.2 mg IV Q2MIN PRN PRN Reason: Opiate Reversal Oxycodone HCl (Oxycodone Ir 5 Mg Tablet) 5 mg PO Q4HR PRN PRN Reason: Pain, Moderate (4-6) Oxycodone HCl (Oxycodone Ir 5 Mg Tablet) 10 mg PO Q3HR PRN PRN Reason: Pain, Severe (7-10) Pantoprazole Sodium (Pantoprazole 40 Mg Vial) 20 mg IV DAILY SCARLETT Discontinued Medications Hydromorphone HCl (Hydromorphone 0.5 Mg Inj) 0.5 mg IV Q15MIN PRN PRN Reason: Pain, Last Admin: 05/14/23 03:54 Dose: 0.5 mg Documented By: Admin: 05/14/23 01:58 Dose: 0.5 mg Documented By: BERE Sodium Chloride (Normal Saline 0.9%) 1,000 mls @ 1,000 mls/hr IV BOLUS ONE Stop: 05/14/23 03:00 Last Infusion: 05/14/23 03:19 Dose: 0 mls/hr Documented By: Admin: 05/14/23 02:05 Dose: 1,000 mls/hr Documented By: BERE Sodium Chloride (Normal Saline 0.9%) 1,000 mls @ 1,000 mls/hr IV BOLUS ONE Stop: 05/14/23 04:36 Last Infusion: 05/14/23 04:38 Dose: 0 mls/hr Documented By: Admin: 05/14/23 03:48 Dose: 1,000 mls/hr Documented By: Piperacillin Sod/Tazobactam (Sod 4.5 gm/ Sodium Chloride) 100 mls @ 200 mls/hr IV NOW ONE Stop: 05/14/23 03:38 Last Infusion: 05/14/23 04:22 Dose: 0 mls/hr Documented By: Admin: 05/14/23 03:48 Dose: 200 mls/hr Documented By: Ondansetron HCl (Ondansetron 4 Mg/2 Ml Inj) 4 mg IV NOW ONE Stop: 05/14/23 01:49 Last Admin: 05/14/23 01:58 Dose: 4 mg Documented By: BERE Vital Signs Vital signs: Vital Signs - 8 hr 05/14/23 01:46 05/14/23 02:02 05/14/23 02:22 Temperature 97.8 F Pulse Rate 102 H 100 H Respiratory Rate 16 15 Blood Pressure 95/65 101/63 Pulse Oximetry 98 93 Oxygen Delivery Method Room Air Oxygen Flow Rate 05/14/23 02:22 05/14/23 02:30 05/14/23 02:30 Temperature Pulse Rate 86 82 Respiratory Rate 12 15 Blood Pressure 104/63 Pulse Oximetry 94 94 Oxygen Delivery Method Room Air Room Air Oxygen Flow Rate 05/14/23 03:00 05/14/23 03:00 05/14/23 03:30 Temperature Pulse Rate 89 Respiratory Rate 18 Blood Pressure 96/60 95/61 Pulse Oximetry 90 L Oxygen Delivery Method Oxygen Flow Rate 05/14/23 03:30 05/14/23 04:00 05/14/23 04:00 Temperature Pulse Rate 89 80 Respiratory Rate 19 14 Blood Pressure 97/61 Pulse Oximetry 89 L 92 Oxygen Delivery Method Room Air Nasal Cannula Oxygen Flow Rate 2 MDM - GI Bleed Lab Data 05/14/23 04:45 05/14/23 01:45 Labs: Lab Results 05/14/23 05/14/23 05/14/23 Range/Units 01:45 01:45 01:45 WBC 13.1 H (4.5-11.0) X10^3/uL RBC 3.56 L (4.0-5.2) X10^6/uL Hgb 11.6 L (12.0-16.0) g/dL Hct 33.3 L (36-46) % MCV 93.6 (80-100) fL MCH 32.7 (26-34) PG MCHC 34.9 (30-36) % RDW 12.7 (11.6-14.8) % Plt Count 449 H (150-400) X10^3/uL Neut % (Auto) 69.0 (50-75) % Lymph % (Auto) 19.5 L (25-40) % [place] % (Auto) 9.9 (3-14) % Eos % (Auto) 0.6 L (2-4) % Baso % (Auto) 1.0 (0-2) % Neut # (Auto) 9100 H (7703-9384) /uL Lymph # (Auto) 2600 (6349-8322) /uL [place] # (Auto) 1300 H (0-900) /uL Eos # (Auto) 100 (0-450) /uL Baso # (Auto) 100 (0-100) /uL Sodium 134 L (137-145) mmol/L Potassium 4.0 (3.4-5.1) mmol/L Chloride 99 (98-107) mmol/L Carbon Dioxide 24 (22-32) mmol/L BUN 12 (7-17) mg/dL Creatinine 0.57 (0.52-1.04) mg/dL Estimated GFR > 60 (>60) mL/min BUN/Creatinine Ratio 21.1 (6-22) Glucose 159 H (80-110) mg/dL Lactate (0.7-2.1) mmol/L Calcium 10.0 (8.4-10.2) mg/dL Total Bilirubin 0.8 (0.2-1.3) mg/dL AST 18 (14-36) IU/L ALT 14 (<35) IU/L Alkaline Phosphatase 71 (38-126) U/L Total Protein 6.7 (6.3-8.2) g/dL Albumin 3.6 (3.5-5.0) g/dL Globulin 3.1 (1.7-4.1) g/dL Albumin/Globulin Ratio 1.2 (1.0-2.8) Blood Type A Positive Antibody Screen Negative 05/14/23 05/14/23 05/14/23 Range/Units 01:45 03:55 03:55 WBC (4.5-11.0) X10^3/uL RBC (4.0-5.2) X10^6/uL Hgb 9.5 L (12.0-16.0) g/dL Hct 27.2 L (36-46) % MCV (80-100) fL MCH (26-34) PG MCHC (30-36) % RDW (11.6-14.8) % Plt Count (150-400) X10^3/uL Neut % (Auto) (50-75) % Lymph % (Auto) (25-40) % [place] % (Auto) (3-14) % Eos % (Auto) (2-4) % Baso % (Auto) (0-2) % Neut # (Auto) (9296-5729) /uL Lymph # (Auto) (8922-2184) /uL [place] # (Auto) (0-900) /uL Eos # (Auto) (0-450) /uL Baso # (Auto) (0-100) /uL Sodium (137-145) mmol/L Potassium (3.4-5.1) mmol/L Chloride (98-107) mmol/L Carbon Dioxide (22-32) mmol/L BUN (7-17) mg/dL Creatinine (0.52-1.04) mg/dL Estimated GFR (>60) mL/min BUN/Creatinine Ratio (6-22) Glucose (80-110) mg/dL Lactate 2.4 H 0.9 (0.7-2.1) mmol/L Calcium (8.4-10.2) mg/dL Total Bilirubin (0.2-1.3) mg/dL AST (14-36) IU/L ALT (<35) IU/L Alkaline Phosphatase (38-126) U/L Total Protein (6.3-8.2) g/dL Albumin (3.5-5.0) g/dL Globulin (1.7-4.1) g/dL Albumin/Globulin Ratio (1.0-2.8) Blood Type Antibody Screen MDM Narrative Medical decision making narrative: CC: Bright red blood per rectum, left lower quadrant pain, hypotension Complicating co-morbidities: Current diagnosis of acute diverticulitis on antibiotics, left lower extremity ankle and proximal fibula fracture post ORIF on 913 at an outside hospital Data collected from: patient, medics Social determinants of health that may influence the patients condition: Medical records reviewed: Prior stroke in March of 2020, hospital records from that are reviewed Differential considered: Diverticular bleed, diverticular abscess, intra-ab dominal abscess, perforated colon, doubt upper GI bleed Exam documented above, pertinent findings include: Hypotensive, pale, diaphoretic, significant left lower quadrant tenderness Lab Test results independently reviewed as above. Pertinent findings: CBC is notable for mild leukocytosis at 13.1 without significant left shift. Mild anemia at 11.6 and 33.3 compared to 14.3 and 42.13 years ago. MCV is normal. Chemistries show normal renal function normal liver studies Lactic acid is initially elevated at 2.4 Imaging studies independently reviewed: CT scan of the abdomen shows suspected focal acute diverticulitis of the distal descending colon. Inflammatory carcinoma can not be excluded. Small volume of free fluid in the pelvis no free air abscess or obstruction. Consultations: Dr Magana, surgery consulted. Agrees with hospitalist admission for acute diverticulitis. Patient notes that she did have a normal colonoscopy but it was greater than [address] Hanna, hospitalist, admit Treatments: Fluid resuscitation, Zosyn, 1 unit PRBC transfusion Re-evaluations: On further clarification she is actually taking Bentyl and was not started on antibiotics for the initial suspected diverticulitis. Blood pressure initially responded to fluid resuscitation that is drifting down again. Oxygen saturations are decreasing and in the 90% range at this point. It is unclear if this is developing sepsis, ongoing blood loss or simply response to parenteral narcotics however her pain is again increasing. CT scan result is available at 325 a.m. and confirms presence diverticular abscess. Additional fluid, oxygen applied, Zosyn ordered, discussion with surge on, repeat Dilaudid due to increasing left lower quadrant pain. Patient has not had any additional diarrhea or blood per rectum since arrival in the emergency department. Repeat H&H as well as lactic acid is currently pending Discussion: 58-year-old woman with recently diagnosed outpatient diverticulitis initially treated appropriately with Bentyl. Now getting worse with evidence of abscess developing without free air or perforation. Antibiotics are initiated. She notices bright red blood with liquid diarrhea with mild decrease in H&H but also did just left ankle surgery. Concern for volume loss secondary to acute bleeding as well as developing sepsis. Repeat labs: H/h drop from 11.6/33.3 to 9.5/27.2 No additional bleeding in the ER at this time. Will recheck h/h 5am after current fluid bolus copmpleted. No an indication for transfusion yet. Lactic acid decreased from 2.4 to .9 with initial fluid bolus. 5:10am 3rd h/h is 8.9/25.5. Given her soft blood pressure, obvious GI source and larger drop then I would have expected for simply hemodilution a unit of packed red blood cells will be transfused. Patient was transferred to the floor approximately 10 minutes ago. Floor nurses helped her up to a bedside commode and she had a near syncopal episode. Recommended not getting her up to the commode until blood pressures are more stable. Recommendations, findings and near syncopal episode are reviewed with the admitting hospitalist who agrees with plan for transfusion. 330 am Severe Sepsis Criteria [x ] bacterial source of infection suspected and documented [ ] 2 SIRS Criteria met [ x ] HR >90 [ ] RR >20 [ ] fever or hypothermia [ x ] leukocytosis/leukopenia/bandemia [ ] Evidence of at least 1 organ system dysfunction [ x ] Lactate > 2 [ ] BP < 90 or MAP <65, >40mm decrease from normal baseline [ ] Creat > 2.0 [ ] T. Bili > 2.0 [ ] platelet count < 100k [ ] altered mental status [ ] mechanical ventilation [ ] provider documentation of severe sepsis Severe Sepsis Determination. the patient has been screened and [ x ] DOES meet criteria for severe sepsis [ ] DOES NOT meet criteria for severe sepsis Goal directed treatment Within 3 hours [ x ] blood cx drawn prior to abx [ x ] broad spectrum abx started [ x ] lactic acid level checked [ ] lactic redrawn within 6 hours if >2.0 Septic Shock Criteria [ ] lactic > 4 at any time [ ] SBP ,90 or MAP , 65 [ ] documentation of septic shock Time Septic Shock diagnosed: [ ] Septic Shock Determination. the patient has been screened and [ ] DOES meet criteria for septic shock [ x ] DOES NOT meet criteria for septic shock Critical Care Time Critical Care Time Critical Care Time: Yes Total Critical Care Time: 33 Attestation: Critical care time is separate from other billable procedures. There is a high probability of a significant, sudden or life-threatening deterioration that requires my full and direct attention, intervention and personal management. This critical care time includes consultation with family and other consulting doctors, review of records, and interpretation of data from labs, EKGs and imaging as well as managements of lower GI bleed with need for blood transfusion, acute diverticulitis, sepsis Discharge Plan Departure Patient Disposition: Admitted As Inpatient Clinical Impression: Acute diverticulitis, Lower gastrointestinal hemorrhage, ABLA (acute blood loss anemia), Sepsis Admit Date/Time: 05/14/23 04:06 Admit Provider: Que Hanna
[2023-05-14 01:56] LABS: Add Manual Diff / Slide Review NO; Basophils Absolute Auto 100 /uL (0-100); Eosinophils Absolute Auto 100 /uL (0-450); Eosinophils Percent Auto 0.6 % (2-4); Hematocrit 33.3 % (36-46); Hemoglobin 11.6 g/dL (12.0-16.0); Lymphocytes Absolute Auto 2600 /uL (1100-4500); Lymphocytes Percent Auto 19.5 % (25-40); Mean Corpuscular HGB Conc 34.9 % (30-36); Mean Corpuscular Hemoglobin 32.7 PG (26-34); Mean Corpuscular Volume 93.6 fL (80-100); Monocytes Absolute Auto 1300 /uL (0-900); Monocytes Percent Auto 9.9 % (3-14); Neutrophils Absolute Auto 9100 /uL (1500-7000); Platelet Count 449 X10^3/uL (150-400); Red Blood Cell Count 3.56 X10^6/uL (4.0-5.2); Red Cell Distribution Width 12.7 % (11.6-14.8); White Blood Cell Count 13.1 X10^3/uL (4.5-11.0)
[2023-05-14] MEDS: ONDANSETRON 4 MG/2 ML INJ IV (01:58)
[2023-05-14] MEDS: HYDROMORPHONE 0.5 MG INJ IV ×3 (01:58→20:32)
[2023-05-14 02:03] LABS: Alanine Aminotransferase 14 IU/L (<35); Albumin 3.6 g/dL (3.5-5.0); Albumin Globulin Ratio 1.2 (1.0-2.8); Alkaline Phosphatase 71 U/L (38-126); Aspartate Aminotransferase 18 IU/L (14-36); BUN Creatinine Ratio 21.1 (6-22); Bilirubin Total 0.8 mg/dL (0.2-1.3); Blood Urea Nitrogen 12 mg/dL (7-17); Carbon Dioxide 24 mmol/L (22-32); Chloride 99 mmol/L (98-107); Estimated Glomerular Filt Rate > 60 mL/min (>60); Globulin 3.1 g/dL (1.7-4.1); Glucose 159 mg/dL (80-110); HEMOLYSIS 15 (0-50); Sodium 134 mmol/L (137-145); Total Protein 6.7 g/dL (6.3-8.2)
[2023-05-14] MEDS: SODIUM CHLORIDE 0.9% 1,000 ML 1000 ML IV ×2 (02:05→03:48)
[2023-05-14 02:23] LABS: Lactate (Lactic Acid) 2.4 mmol/L (0.7-2.1)
[2023-05-14] MEDS: PIPERACILLIN/TAZO 4.5 GM in SODIUM CHLORIDE 0.9% 100 ML IV (03:48)
[2023-05-14 04:02] LABS: Hematocrit 27.2 % (36-46); Hemoglobin 9.5 g/dL (12.0-16.0)
[2023-05-14 04:11] LABS: Lactate (Lactic Acid) 0.9 mmol/L (0.7-2.1)
[2023-05-14 04:16] LABS: Reflexed Lactate in 2 Hours Y
[2023-05-14 04:53] LABS: Hematocrit 25.5 % (36-46); Hemoglobin 8.9 g/dL (12.0-16.0)
--- NOTE | 2023-05-14 04:55 | PM.HP.1 ---
History of Present Illness History of Present Illness Date Patient Seen: 05/14/23 Chief complaint: weakness, GI bleed Narrative: 58 y/o with PMH of diverticulosis of colon, Lt ankle ORIF for fracture 2 weeks ago, anxiety, depression, TIA, who developed LLQ pain, watery diarrhea and bright red bleed x 3, felt diaphoretic, called 911 and presented to ED with diverticulitis of descending colon, with mild sepsis. She had minimal PO intake in the past few days. [facility] Medical History Ankle fracture, left Cerebrovascular accident History of diverticulitis of colon Social History household members: significant other Smoking Status: Never smoker alcohol intake: current Meds Home Medications and Allergies Home Medications Medication Instructions Recorded Confirmed Type alprazolam 0.25 mg tablet 0.25 mg PO Q12HP ##0 03/24/11 05/14/23 History escitalopram oxalate 5 mg tablet 5 mg PO Q DAY ##0 03/24/11 05/14/23 History (Lexapro) acetaminophen 500 mg tablet 1,000 mg PO Q6HR 05/14/23 05/14/23 History levothyroxine 100 mcg tablet 100 mcg PO DAILY 05/14/23 05/14/23 History (Synthroid) oxycodone 5 mg tablet 5 mg PO Q6HR pain 05/14/23 05/14/23 History Allergies Allergy/AdvReac Type Severity Reaction Status Date / Time No Known Drug Allergies Allergy Verified 04/20/20 06:09 Review of Systems Constitutional Comments: no chills or fever Cardiovascular Comments: w/o chest pain or palpitations Respiratory Comments: short of breath Gastrointestinal Comments: LLQ pain, diarrhea, blood in the stool Without vomiting Episodic nausea Poor oral intake Genitourinary Comments: w/o dysuria Musculoskeletal Comments: Lt ankle pain Neurologic Comments: negative Hematologic/Lymphatic Comments: no prior episodes of blood per rectum Exam Vital Signs (past 8 hours): - 05/14/23 01:46 05/14/23 02:02 05/14/23 02:22 Temperature 97.8 F Pulse Rate 102 H 100 H Respiratory Rate 16 15 Blood Pressure 95/65 101/63 Pulse Oximetry 98 93 Oxygen Delivery Method Room Air Oxygen Flow Rate 05/14/23 02:22 05/14/23 02:30 05/14/23 02:30 Temperature Pulse Rate 86 82 Respiratory Rate 12 15 Blood Pressure 104/63 Pulse Oximetry 94 94 Oxygen Delivery Method Room Air Room Air Oxygen Flow Rate 05/14/23 03:00 05/14/23 03:00 05/14/23 03:30 Temperature Pulse Rate 89 Respiratory Rate 18 Blood Pressure 96/60 95/61 Pulse Oximetry 90 L Oxygen Delivery Method Oxygen Flow Rate 05/14/23 03:30 05/14/23 04:00 05/14/23 04:00 Temperature Pulse Rate 89 80 Respiratory Rate 19 14 Blood Pressure 97/61 Pulse Oximetry 89 L 92 Oxygen Delivery Method Room Air Nasal Cannula Oxygen Flow Rate 2 05/14/23 04:30 05/14/23 04:30 Temperature Pulse Rate 81 Respiratory Rate 16 Blood Pressure 96/56 L Pulse Oximetry 95 Oxygen Delivery Method Oxygen Flow Rate Oxygen Delivery Method Nasal Cannula Oxygen Flow Rate 2 Const Other: laying in bed in no distress Eyes Pupils: normal by confrontation EOM: EOM intact bilaterally Resp Effort & Inspection: normal respiratory effort Cardio Rate: regular rate Rhythm: regular rhythm GI Other: w/o distension. LLQ teneder to palpation. Hyperactive sounds. Skin Other: not jaundiced, no rashes Neuro Other: w/o deficits Psych Other: lucid, appropriate mood Objective Labs 05/14/23 04:45 05/14/23 01:45 Labs: Laboratory Results - last 24 hr 05/14/23 05/14/23 05/14/23 01:45 01:45 01:45 WBC 13.1 H RBC 3.56 L Hgb 11.6 L Hct 33.3 L MCV 93.6 MCH 32.7 MCHC 34.9 RDW 12.7 Plt Count 449 H Neut % (Auto) 69.0 Lymph % (Auto) 19.5 L [place] % (Auto) 9.9 Eos % (Auto) 0.6 L Baso % (Auto) 1.0 Neut # (Auto) 9100 H Lymph # (Auto) 2600 [place] # (Auto) 1300 H Eos # (Auto) 100 Baso # (Auto) 100 Sodium 134 L Potassium 4.0 Chloride 99 Carbon Dioxide 24 BUN 12 Creatinine 0.57 Estimated GFR > 60 BUN/Creatinine Ratio 21.1 Glucose 159 H Lactate Calcium 10.0 Total Bilirubin 0.8 AST 18 ALT 14 Alkaline Phosphatase 71 Total Protein 6.7 Albumin 3.6 Globulin 3.1 Albumin/Globulin Ratio 1.2 Blood Type A Positive Antibody Screen Negative 05/14/23 05/14/23 05/14/23 01:45 03:55 03:55 WBC RBC Hgb 9.5 L Hct 27.2 L MCV MCH MCHC RDW Plt Count Neut % (Auto) Lymph % (Auto) [place] % (Auto) Eos % (Auto) Baso % (Auto) Neut # (Auto) Lymph # (Auto) [place] # (Auto) Eos # (Auto) Baso # (Auto) Sodium Potassium Chloride Carbon Dioxide BUN Creatinine Estimated GFR BUN/Creatinine Ratio Glucose Lactate 2.4 H 0.9 Calcium Total Bilirubin AST ALT Alkaline Phosphatase Total Protein Albumin Globulin Albumin/Globulin Ratio Blood Type Antibody Screen 05/14/23 04:45 WBC RBC Hgb 8.9 L Hct 25.5 L MCV MCH MCHC RDW Plt Count Neut % (Auto) Lymph % (Auto) [place] % (Auto) Eos % (Auto) Baso % (Auto) Neut # (Auto) Lymph # (Auto) [place] # (Auto) Eos # (Auto) Baso # (Auto) Sodium Potassium Chloride Carbon Dioxide BUN Creatinine Estimated GFR BUN/Creatinine Ratio Glucose Lactate Calcium Total Bilirubin AST ALT Alkaline Phosphatase Total Protein Albumin Globulin Albumin/Globulin Ratio Blood Type Antibody Screen Assessment & Plan Assessment and plan (1) Acute diverticulitis: Status: Acute (2) Lower gastrointestinal hemorrhage: Status: Acute (3) ABLA (acute blood loss anemia): Status: Acute (4) Sepsis: Qualifiers: Sepsis acute organ dysfunction status: without acute organ dysfunction Sepsis type: sepsis due to unspecified organism Qualified Code(s): A41.9 - Sepsis, unspecified organism Status: Acute (5) Fracture of left proximal fibula: Status: Acute (6) Anxiety and depression: Status: Acute (7) Hypothyroidism: Status: Acute Assessment & Plan narrative: 1. Acute Diverticulitis / Sepsis - Zosyn - clear liquids trial if tolerates, antiemetic - IVFs 2. Lower GI bleed / Acute Posthemorrhagic Anemia - 2nd to diverticulitis, presumably - colonoscopy / GI f/u once diverticulitis healed, CT findings of carcinoma as a DD - serial HH - next at 7 am, today - PRBCs prn 3. Anxiety, Depression - Lexapro, Xanax 4. Lt ankle fracture / recent ORIF - pain management - f/u with orthopedist 5. Hypothyroidism - levothyroxyne GI prophylaxis - PPI DVT prophylaxis - pharmacologic contraindicated at this point in time, SCDs
[2023-05-14 05:16] LABS: Appearance Urine UA CLEAR; Bilirubin Urine UA 1+ (NEGATIVE); Color Urine UA YELLOW; Glucose Urine UA NEGATIVE (Negative); Ketones Urine UA 1+ (NEGATIVE); Leukocyte Esterase Urine UA NEGATIVE (NEGATIVE); Nitrite Urine UA NEGATIVE (Negative); Occult Blood Urine UA 3+ (Negative); Protein Urine UA NEGATIVE (Negative); Specific Gravity Urine UA <=1.005 (1.000-1.035); Urobilinogen Urine UA 0.2 E.U./dL (0.2)
[2023-05-14 05:31] LABS: Bacteria Urine None Seen; Culture Indicated Urine Cult Not Indicated; Ictotest Urine Negative (Negative); RBC Urine 0-1/HPF (0-5/HPF); Squamous Epithelial Cell Urine 0-1 /HPF (0-5/HPF); Transitional Epi Cells Urine 0-1/HPF (0-5/HPF); WBC Urine None Seen (0-5/HPF)
[2023-05-14] MEDS: ACETAMINOPHEN 325 MG TABLET 650 MG PO ×2 (06:34→11:37)
[2023-05-14] MEDS: LEVOTHYROXINE 100 MCG TABLET PO (06:34)
[2023-05-14] MEDS: OXYCODONE IR 5 MG TABLET PO ×2 (06:34→11:35)
[2023-05-14] MEDS: SODIUM CHLORIDE 0.9% 1,000 ML 84 ML IV ×2 (06:35→20:36)
--- NOTE | 2023-05-14 07:21 | PC.NURSE ---
Patient admitted into room 221 at 0500. Patient had 4 small bloody stools with clots of blood. Patient c/o intermittent nausea, declined antiemetic. Patient c/o LLQ abd pain rated 5/10, Tylenol 650mg and [place] 1 tab given, pt fell asleep after analgesics. Patient received one unit blood, tolerated well, denies any SOB. NS infusing at 84ml/hr.
[2023-05-14] MEDS: PANTOPRAZOLE 40 MG VIAL 20 MG IV (08:23)
[2023-05-14] MEDS: PIPERACILLIN/TAZO 3.375 GM in SODIUM CHLORIDE 0.9% 100 ML IV ×2 (08:24→17:04)
[2023-05-14] MEDS: ESCITALOPRAM 10 MG TABLET 5 MG PO (08:24)
[2023-05-14 08:53] LABS: Add Manual Diff / Slide Review NO; Basophils Absolute Auto 100 /uL (0-100); Basophils Percent Auto 0.6 % (0-2); Eosinophils Absolute Auto 0 /uL (0-450); Eosinophils Percent Auto 0.2 % (2-4); Hematocrit 27.7 % (36-46); Hemoglobin 9.8 g/dL (12.0-16.0); Lymphocytes Absolute Auto 1700 /uL (1100-4500); Lymphocytes Percent Auto 18.4 % (25-40); Mean Corpuscular HGB Conc 35.3 % (30-36); Mean Corpuscular Hemoglobin 32.8 PG (26-34); Mean Corpuscular Volume 93.1 fL (80-100); Monocytes Absolute Auto 900 /uL (0-900); Monocytes Percent Auto 9.7 % (3-14); Neutrophils Absolute Auto 6700 /uL (1500-7000); Neutrophils Percent Auto 71.1 % (50-75); Platelet Count 307 X10^3/uL (150-400); Red Blood Cell Count 2.97 X10^6/uL (4.0-5.2); Red Cell Distribution Width 13.2 % (11.6-14.8); White Blood Cell Count 9.4 X10^3/uL (4.5-11.0)
[2023-05-14 09:00] LABS: BUN Creatinine Ratio 21.4 (6-22); Blood Urea Nitrogen 9 mg/dL (7-17); Calcium 8.4 mg/dL (8.4-10.2); Carbon Dioxide 24 mmol/L (22-32); Chloride 105 mmol/L (98-107); Estimated Glomerular Filt Rate > 60 mL/min (>60); Glucose 114 mg/dL (80-110); HEMOLYSIS < 15 (0-50); Potassium 4.1 mmol/L (3.4-5.1); Sodium 133 mmol/L (137-145)
--- NOTE | 2023-05-14 11:17 | CM.DANOTE ---
Reviewed chart with existing information, and patient discussed in multidisciplinary rounds this morning. Met with patient and introduced to care coordination and discharge planning. They agree to assessment. Pt is a 58 year old admitted for diverticular GIB. States she still works full-time, has had prior abnormal colonoscopy but didn?t follow up. States she saw her PCP last week for symptoms of N/V/D. 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 PCP: Monika Bustillo DME: None currently Payer: [facility] Barriers: Toleration of clear liquid diet Joana Cortez RN, CM Discharge Planning/Care Management Advanced directive, confirm from FAMILY Start: 05/14/23 06:09 Freq: Q24H Status: Active Protocol: Document 05/14/23 06:09 (Rec: 05/14/23 06:46 [id number]) Advance Directive, confirm on record Time 06:46 Person contacted patient Copy received No CM Discharge Assessment Start: 05/14/23 11:16 Freq: Status: Active Protocol: Document 05/14/23 11:16 BQ (Rec: 05/14/23 11:17 BQ [id number]) Discharge Planning Assessment Assigned Ocular Pathologist Joana Cortez RN, CM Advance Directives? Yes Advance Directives on File No History Provided By Patient Has Patient been admitted in last 30 No days? Prior Living Arrangements House Household Members significant other Type of transporation used prior to Drives own vehicle admit Independent with ADL's Yes Is patient alert and oriented? Yes Caregiver for Another No Barriers to Discharge No Discharge Plan Home Referrals Initiated None needed Whiteboard Updated in Patient Room with Yes name and ext. # of Ocular Pathologist Review Status In Process Next Review Type Continued Stay Review
[2023-05-14 14:29] LABS: Hemoglobin 8.1 g/dL (12.0-16.0)
[2023-05-14] MEDS: ALPRAZolam 0.25 MG TABLET PO (15:06)
--- NOTE | 2023-05-14 15:36 | P.DS_ITS ---
History of Present Illness History of Present Illness Chief complaint: weakness, GI bleed Narrative: Per history and physical: 58 y/o with PMH of diverticulosis of colon, Lt ankle ORIF for fracture 2 weeks ago, anxiety, depression, TIA, who developed LLQ pain, watery diarrhea and bright red bleed x 3, felt diaphoretic, called 911 and presented to ED with diverticulitis of descending colon, with mild sepsis. She had minimal PO intake in the past few days. Per my interview: Patient reports she fractured her ankle 2 weeks ago but had surgery 2 days ago. Since surgery she is been taking aspirin 325 mg twice daily along with Tylenol for pain. Her last colonoscopy was 20 years ago. She reports she had symptoms of evolving diverticulitis even prior to her surgery a couple of days ago. She notes she had some left lower quadrant pain. However, she developed some cramping and stool mixed with bright red blood last evening. Overnight, she reports it went from being mixed stool and blood to antonio blood. She describes the bleeding as ?light? earlier in the day but now reports it is getting worse. She states when she is upright she feels as though she will faint. She is not having any shortness breath or chest pain. No worsening abdominal pain. Discharge Providers Provider Date of admission: 05/14/23 04:06 Discharge Date: 05/14/23 Primary care physician: IDALIA Tolentino Consults: Dr. Ashley Magana, general surgery Discharge provider: Racquel Perdomo MD Summary Hospital Course Discharge Diagnosis: 1. Acute diverticulitis, involving the splenic flexure, descending and proximal sigmoid colon, without abscess 2. Acute lower GI bleed, likely diverticular in nature 3. Acute blood loss anemia 4. Postop day 2. From left ankle fracture repair 5. Depression/anxiety 6. Hypothyroidism Hospital Course: Patient was admitted earlier this morning after presenting to the emergency department overnight with rectal bleeding and diaphoresis in the setting of left lower quadrant pain which she suspected to be diverticulitis. She has previous history of diverticulitis but no previous history of rectal bleeding. She had 3 episodes of bloody stool overnight him diaphoretic. She transferred to the emergency department for further evaluation. In the emergency department, her initial hemoglobin was 11.6. Following some ongoing rectal bleeding, her hemoglobin did drop down to 8.9. She received 1 unit of packed red blood cells and reportedly was feeling better. By 830 this morning, her hemoglobin had stabilized at 9.8. However over the course of the afternoon as her symptoms worsen, hemoglobin was repeated and was 8.1. Additional 2 units of packed red blood cells were ordered for transfusion. I did discuss the case with Dr. Magana, General surgery, who advised patient should be transferred to higher level of care for consideration of interventional radiology for CT angio. At this, a transfer facility has not yet been identified, but is in process. Plan to obtain an ICU bed at the outlying facility. Status at Discharge Cognitive/behavioral status at discharge: at baseline, oriented Functional status at discharge: independent ambulation Overall status at discharge: patient is not back to baseline Time Spent with Patient Time spent: Greater than 30 minutes Exam Vital Signs (past 8 hours): - 05/14/23 08:23 05/14/23 12:00 05/14/23 15:20 Temperature 97.8 F 97.9 F 97.8 F Pulse Rate 72 67 83 Respiratory Rate 17 18 Blood Pressure 109/65 104/61 100/60 Pulse Oximetry 90 L 93 Oxygen Flow Rate 0 0 Oxygen Delivery Method Nasal Cannula Oxygen Flow Rate 0 Narrative Exam Narrative: GEN: Pale irritable anxious middle-aged female, Alert and oriented x 3 HEENT:NC, Face symmetric CHEST: Respiratory excursions symmetric, CTAB CV: RRR, no M/R/G, heart rate presently 83, blood pressure 100/60 ABD: Soft, tender to palpation in the left lower quadrant/ND, BT present in all 4 quadrants, no organomegaly or masses EXTR: warm, well perfused, no C/C/E, left lower extremity is in a postoperative cast SKIN: warm and dry, no rash, pale NEURO: Alert and oriented x 3, nonfocal Objective Labs 05/14/23 18:00 05/14/23 08:30 Labs: Laboratory Results - last 24 hr 05/14/23 05/14/23 05/14/23 01:45 01:45 01:45 WBC 13.1 H RBC 3.56 L Hgb 11.6 L Hct 33.3 L MCV 93.6 MCH 32.7 MCHC 34.9 RDW 12.7 Plt Count 449 H Neut % (Auto) 69.0 Lymph % (Auto) 19.[address] [place] % (Auto) 9.9 Eos % (Auto) 0.6 L Baso % (Auto) 1.0 Neut # (Auto) 9100 H Lymph # (Auto) 2600 [place] # (Auto) 1300 H Eos # (Auto) 100 Baso # (Auto) 100 Sodium 134 L Potassium 4.0 Chloride 99 Carbon Dioxide 24 BUN 12 Creatinine 0.57 Estimated GFR > 60 BUN/Creatinine Ratio 21.1 Glucose 159 H Lactate Calcium 10.0 Total Bilirubin 0.8 AST 18 ALT 14 Alkaline Phosphatase 71 Total Protein 6.7 Albumin 3.6 Globulin 3.1 Albumin/Globulin Ratio 1.2 Urine Color Urine Appearance Urine pH Ur Specific [place] Urine Protein Urine Glucose (UA) Urine Ketones Urine Occult Blood Urine Nitrate Urine Bilirubin Ur Bilirubin Confirm Urine Urobilinogen Ur Leukocyte Esterase Urine RBC Urine WBC Ur Squamous Epith Cells Ur Transition Epith Cell Urine Bacteria Ur Culture Indicated? Blood Type A Positive Antibody Screen Negative Crossmatch See Detail 05/14/23 05/14/23 05/14/23 01:45 03:55 03:55 WBC RBC Hgb 9.5 L Hct 27.2 L MCV MCH MCHC RDW Plt Count Neut % (Auto) Lymph % (Auto) [place] % (Auto) Eos % (Auto) Baso % (Auto) Neut # (Auto) Lymph # (Auto) [place] # (Auto) Eos # (Auto) Baso # (Auto) Sodium Potassium Chloride Carbon Dioxide BUN Creatinine Estimated GFR BUN/Creatinine Ratio Glucose Lactate 2.4 H 0.9 Calcium Total Bilirubin AST ALT Alkaline Phosphatase Total Protein Albumin Globulin Albumin/Globulin Ratio Urine Color Urine Appearance Urine pH Ur Specific [place] Urine Protein Urine Glucose (UA) Urine Ketones Urine Occult Blood Urine Nitrate Urine Bilirubin Ur Bilirubin Confirm Urine Urobilinogen Ur Leukocyte Esterase Urine RBC Urine WBC Ur Squamous Epith Cells Ur Transition Epith Cell Urine Bacteria Ur Culture Indicated? Blood Type Antibody Screen Crossmatch 05/14/23 05/14/23 05/14/23 04:45 05:00 08:30 WBC 9.4 RBC 2.97 L Hgb 8.9 L 9.8 L Hct 25.5 L 27.7 L MCV 93.1 MCH 32.8 MCHC 35.3 RDW 13.2 Plt Count 307 Neut % (Auto) 71.1 Lymph % (Auto) 18.[address] [place] % (Auto) 9.7 Eos % (Auto) 0.2 L Baso % (Auto) 0.6 Neut # (Auto) 6700 Lymph # (Auto) 1700 [place] # (Auto) 900 Eos # (Auto) 0 Baso # (Auto) 100 Sodium Potassium Chloride Carbon Dioxide BUN Creatinine Estimated GFR BUN/Creatinine Ratio Glucose Lactate Calcium Total Bilirubin AST ALT Alkaline Phosphatase Total Protein Albumin Globulin Albumin/Globulin Ratio Urine Color Yellow Urine Appearance Clear Urine pH 5.0 Ur Specific [place] <=1.005 Urine Protein Negative Urine Glucose (UA) Negative Urine Ketones 1+ H Urine Occult Blood 3+ H Urine Nitrate Negative Urine Bilirubin 1+ H Ur Bilirubin Confirm Negative Urine Urobilinogen 0.2 Ur Leukocyte Esterase Negative Urine RBC 0-1/hpf Urine WBC None seen Ur Squamous Epith Cells 0-1 /hpf Ur Transition Epith Cell 0-1/hpf Urine Bacteria None seen Ur Culture Indicated? Cult not indicated Blood Type Antibody Screen Crossmatch 05/14/23 05/14/23 08:30 14:25 WBC RBC Hgb 8.1 L Hct MCV MCH MCHC RDW Plt Count Neut % (Auto) Lymph % (Auto) [place] % (Auto) Eos % (Auto) Baso % (Auto) Neut # (Auto) Lymph # (Auto) [place] # (Auto) Eos # (Auto) Baso # (Auto) Sodium 133 L Potassium 4.1 Chloride 105 Carbon Dioxide 24 BUN 9 Creatinine 0.42 L Estimated GFR > 60 BUN/Creatinine Ratio 21.4 Glucose 114 H Lactate Calcium 8.4 Total Bilirubin AST ALT Alkaline Phosphatase Total Protein Albumin Globulin Albumin/Globulin Ratio Urine Color Urine Appearance Urine pH Ur Specific [place] Urine Protein Urine Glucose (UA) Urine Ketones Urine Occult Blood Urine Nitrate Urine Bilirubin Ur Bilirubin Confirm Urine Urobilinogen Ur Leukocyte Esterase Urine RBC Urine WBC Ur Squamous Epith Cells Ur Transition Epith Cell Urine Bacteria Ur Culture Indicated? Blood Type Antibody Screen Crossmatch [facility] Medical History Ankle fracture, left Cerebrovascular accident History of diverticulitis of colon Social History household members: significant other Smoking Status: Never smoker alcohol intake: current Discharge Plan Discharge Plan Patient Disposition: [facility] Discharge orders & Medications Medication counseling provided by Pharmacist: No Discharge Health Status Multidrug resistant organism: No MDRO Precautions: [place] Diet/Activity/Treatments Diet: Nothing by Mouth Activity: bed rest d/t presyncopal sxs Oxygen: as needed to keep sats>92% Visit Report/Discharge Packet Instructions: Hemoglobin, Hematocrit, Diverticulitis, Gastrointestinal Bleeding Discharge Data Primary Care Provider: Monika Bustillo VTE Deep Vein Thrombosis/Pulmonary Embolism Present on Admission: No
--- NOTE | 2023-05-14 17:58 | PC.NURSE ---
Pt moved from rm 221 to 231 after 8 episodes of bloody stools, one unit PRBC transfused over night, second unit transfusing with transfer, will admin. third unit after this is completed, VSS at this time, pt continues to be on bed shane, frequent bloody stools with many clots present, family at bedside, Providers attempting to transfer pt to higher level of care, no accepting hospitals as of yet. Spoke to blood bank, ordered 2 units PRBC to remain on hand at all times until otherwise notified. H/H remains stable at this time, will continue monitor closely for changes. Pt states that she does not feel well, this nurse reassured pt and family that we are watching pt closely. Call light within reach, pt able to make needs known, no further needs at this time
[2023-05-14 18:08] LABS: Add Manual Diff / Slide Review NO; Basophils Absolute Auto 0 /uL (0-100); Basophils Percent Auto 0.4 % (0-2); Eosinophils Absolute Auto 0 /uL (0-450); Eosinophils Percent Auto 0.4 % (2-4); Hematocrit 23.4 % (36-46); Hemoglobin 8.1 g/dL (12.0-16.0); Lymphocytes Absolute Auto 1900 /uL (1100-4500); Lymphocytes Percent Auto 23.4 % (25-40); Mean Corpuscular HGB Conc 34.6 % (30-36); Mean Corpuscular Hemoglobin 31.7 PG (26-34); Mean Corpuscular Volume 91.7 fL (80-100); Monocytes Absolute Auto 800 /uL (0-900); Monocytes Percent Auto 9.9 % (3-14); Neutrophils Absolute Auto 5300 /uL (1500-7000); Neutrophils Percent Auto 65.9 % (50-75); Platelet Count 269 X10^3/uL (150-400); Red Blood Cell Count 2.55 X10^6/uL (4.0-5.2); White Blood Cell Count 8.1 X10^3/uL (4.5-11.0)
[2023-05-14 18:51] LABS: COVID19 -Nasal RAPID Negative (Negative)
--- NOTE | 2023-05-14 19:42 | PM.CN ---
History of Present Illness Consult details Date Patient Seen: 05/14/23 Time Patient Seen: 19:43 Chief complaint: weakness, GI bleed Narrative: Mrs. Olivares Meds Home Medications and Allergies Home Medications Medication Instructions Recorded Confirmed Type alprazolam 0.25 mg tablet 0.25 mg PO Q12HP ##0 03/24/11 05/14/23 History escitalopram oxalate 5 mg tablet 5 mg PO Q DAY ##0 03/24/11 05/14/23 History (Lexapro) acetaminophen 500 mg tablet 1,000 mg PO Q6HR 05/14/23 05/14/23 History levothyroxine 100 mcg tablet 100 mcg PO DAILY 05/14/23 05/14/23 History (Synthroid) oxycodone 5 mg tablet 5 mg PO Q6HR pain 05/14/23 05/14/23 History Allergies Allergy/AdvReac Type Severity Reaction Status Date / Time No Known Drug Allergies Allergy Verified 04/20/20 06:09 Exam Vital Signs (past 8 hours): - 05/14/23 12:00 05/14/23 15:20 05/14/23 15:45 Temperature 97.9 F 97.8 F 97.3 F L Pulse Rate 67 83 95 H Respiratory Rate 17 18 18 Blood Pressure 104/61 100/60 114/66 Pulse Oximetry 93 Oxygen Flow Rate 0 05/14/23 17:00 05/14/23 17:10 05/14/23 17:11 Temperature 98 F Pulse Rate 96 H 82 Respiratory Rate 16 Blood Pressure 112/65 113/67 Pulse Oximetry Oxygen Flow Rate 05/14/23 17:11 05/14/23 17:30 05/14/23 17:30 Temperature Pulse Rate 82 84 Respiratory Rate 14 17 Blood Pressure 111/69 Pulse Oximetry 96 95 Oxygen Flow Rate 05/14/23 18:14 05/14/23 18:18 05/14/23 18:00 Temperature 98.3 F 98.3 F Pulse Rate 111 H 98 H Respiratory Rate 18 18 Blood Pressure 108/68 108/68 108/68 Pulse Oximetry Oxygen Flow Rate 05/14/23 18:00 05/14/23 18:30 05/14/23 18:30 Temperature Pulse Rate 84 97 H Respiratory Rate 16 15 Blood Pressure 102/59 L Pulse Oximetry 95 96 Oxygen Flow Rate 05/14/23 18:45 05/14/23 18:45 05/14/23 19:00 Temperature Pulse Rate 96 H Respiratory Rate 20 Blood Pressure 96/61 103/65 Pulse Oximetry 96 Oxygen Flow Rate 05/14/23 19:00 05/14/23 19:15 05/14/23 19:15 Temperature Pulse Rate 95 H 101 H Respiratory Rate 19 15 Blood Pressure 90/60 Pulse Oximetry 95 97 Oxygen Flow Rate 0 Oxygen Delivery Method Nasal Cannula Oxygen Flow Rate 0 Objective Labs 05/14/23 21:16 05/14/23 08:30 Labs: Laboratory Results - last 24 hr 05/14/23 05/14/23 05/14/23 01:45 01:45 01:45 WBC 13.1 H RBC 3.56 L Hgb 11.6 L Hct 33.3 L MCV 93.6 MCH 32.7 MCHC 34.9 RDW 12.7 Plt Count 449 H Neut % (Auto) 69.0 Lymph % (Auto) 19.5 L [place] % (Auto) 9.9 Eos % (Auto) 0.6 L Baso % (Auto) 1.0 Neut # (Auto) 9100 H Lymph # (Auto) 2600 [place] # (Auto) 1300 H Eos # (Auto) 100 Baso # (Auto) 100 Sodium 134 L Potassium 4.0 Chloride 99 Carbon Dioxide 24 BUN 12 Creatinine 0.57 Estimated GFR > 60 BUN/Creatinine Ratio 21.1 Glucose 159 H Lactate Calcium 10.0 Total Bilirubin 0.8 AST 18 ALT 14 Alkaline Phosphatase 71 Total Protein 6.7 Albumin 3.6 Globulin 3.1 Albumin/Globulin Ratio 1.2 Urine Color Urine Appearance Urine pH Ur Specific [place] Urine Protein Urine Glucose (UA) Urine Ketones Urine Occult Blood Urine Nitrate Urine Bilirubin Ur Bilirubin Confirm Urine Urobilinogen Ur Leukocyte Esterase Urine RBC Urine WBC Ur Squamous Epith Cells Ur Transition Epith Cell Urine Bacteria Ur Culture Indicated? SARS-CoV-2 (PCR) Blood Type A Positive Antibody Screen Negative Crossmatch See Detail 05/14/23 05/14/23 05/14/23 01:45 03:55 03:55 WBC RBC Hgb 9.5 L Hct 27.2 L MCV MCH MCHC RDW Plt Count Neut % (Auto) Lymph % (Auto) [place] % (Auto) Eos % (Auto) Baso % (Auto) Neut # (Auto) Lymph # (Auto) [place] # (Auto) Eos # (Auto) Baso # (Auto) Sodium Potassium Chloride Carbon Dioxide BUN Creatinine Estimated GFR BUN/Creatinine Ratio Glucose Lactate 2.4 H 0.9 Calcium Total Bilirubin AST ALT Alkaline Phosphatase Total Protein Albumin Globulin Albumin/Globulin Ratio Urine Color Urine Appearance Urine pH Ur Specific [place] Urine Protein Urine Glucose (UA) Urine Ketones Urine Occult Blood Urine Nitrate Urine Bilirubin Ur Bilirubin Confirm Urine Urobilinogen Ur Leukocyte Esterase Urine RBC Urine WBC Ur Squamous Epith Cells Ur Transition Epith Cell Urine Bacteria Ur Culture Indicated? SARS-CoV-2 (PCR) Blood Type Antibody Screen Crossmatch 05/14/23 05/14/23 05/14/23 04:45 05:00 08:30 WBC 9.4 RBC 2.97 L Hgb 8.9 L 9.8 L Hct 25.5 L 27.7 L MCV 93.1 MCH 32.8 MCHC 35.3 RDW 13.2 Plt Count 307 Neut % (Auto) 71.1 Lymph % (Auto) 18.4 L [place] % (Auto) 9.7 Eos % (Auto) 0.2 L Baso % (Auto) 0.6 Neut # (Auto) 6700 Lymph # (Auto) 1700 [place] # (Auto) 900 Eos # (Auto) 0 Baso # (Auto) 100 Sodium Potassium Chloride Carbon Dioxide BUN Creatinine Estimated GFR BUN/Creatinine Ratio Glucose Lactate Calcium Total Bilirubin AST ALT Alkaline Phosphatase Total Protein Albumin Globulin Albumin/Globulin Ratio Urine Color Yellow Urine Appearance Clear Urine pH 5.0 Ur Specific [place] <=1.005 Urine Protein Negative Urine Glucose (UA) Negative Urine Ketones 1+ H Urine Occult Blood 3+ H Urine Nitrate Negative Urine Bilirubin 1+ H Ur Bilirubin Confirm Negative Urine Urobilinogen 0.2 Ur Leukocyte Esterase Negative Urine RBC 0-1/hpf Urine WBC None seen Ur Squamous Epith Cells 0-1 /hpf Ur Transition Epith Cell 0-1/hpf Urine Bacteria None seen Ur Culture Indicated? Cult not indicated SARS-CoV-2 (PCR) Blood Type Antibody Screen Crossmatch 05/14/23 05/14/23 05/14/23 08:30 14:25 18:00 WBC 8.1 RBC 2.55 L Hgb 8.1 L 8.1 L Hct 23.4 L MCV 91.7 MCH 31.7 MCHC 34.6 RDW 14.0 Plt Count 269 Neut % (Auto) 65.9 Lymph % (Auto) 23.4 L [place] % (Auto) 9.9 Eos % (Auto) 0.4 L Baso % (Auto) 0.4 Neut # (Auto) 5300 Lymph # (Auto) 1900 [place] # (Auto) 800 Eos # (Auto) 0 Baso # (Auto) 0 Sodium 133 L Potassium 4.1 Chloride 105 Carbon Dioxide 24 BUN 9 Creatinine 0.42 L Estimated GFR > 60 BUN/Creatinine Ratio 21.4 Glucose 114 H Lactate Calcium 8.4 Total Bilirubin AST ALT Alkaline Phosphatase Total Protein Albumin Globulin Albumin/Globulin Ratio Urine Color Urine Appearance Urine pH Ur Specific [place] Urine Protein Urine Glucose (UA) Urine Ketones Urine Occult Blood Urine Nitrate Urine Bilirubin Ur Bilirubin Confirm Urine Urobilinogen Ur Leukocyte Esterase Urine RBC Urine WBC Ur Squamous Epith Cells Ur Transition Epith Cell Urine Bacteria Ur Culture Indicated? SARS-CoV-2 (PCR) Blood Type Antibody Screen Crossmatch 05/14/23 18:30 WBC RBC Hgb Hct MCV MCH MCHC RDW Plt Count Neut % (Auto) Lymph % (Auto) [place] % (Auto) Eos % (Auto) Baso % (Auto) Neut # (Auto) Lymph # (Auto) [place] # (Auto) Eos # (Auto) Baso # (Auto) Sodium Potassium Chloride Carbon Dioxide BUN Creatinine Estimated GFR BUN/Creatinine Ratio Glucose Lactate Calcium Total Bilirubin AST ALT Alkaline Phosphatase Total Protein Albumin Globulin Albumin/Globulin Ratio Urine Color Urine Appearance Urine pH Ur Specific [place] Urine Protein Urine Glucose (UA) Urine Ketones Urine Occult Blood Urine Nitrate Urine Bilirubin Ur Bilirubin Confirm Urine Urobilinogen Ur Leukocyte Esterase Urine RBC Urine WBC Ur Squamous Epith Cells Ur Transition Epith Cell Urine Bacteria Ur Culture Indicated? SARS-CoV-2 (PCR) Negative Blood Type Antibody Screen Crossmatch [facility] Medical History Ankle fracture, left Cerebrovascular accident History of diverticulitis of colon Social History household members: significant other Tobacco & Substance Use Smoking Status: Never smoker alcohol intake: current Assessment & Plan Assessment & Plan narrative: Discussed with Dr. Perdomo and patient is having what is likely a diverticular bleed. She has had 1 unit of blood and I think that she would be best served by transferring in this. Where she may become worse rather than continuing to observe at [facility]. I will keep a close eye on her and if she begins to bleed profusely we can proceed with a total colectomy to stop the bleeding but would rather have her at a institution that has access to angiography or advanced endoscopy to try to localize the bleeding. I personally have not had success with using a colonoscope in the setting of active or recent bleeding to stop a diverticular bleed. I discussed this with the patient and her family at the bedside and they agree with this plan. Meanwhile I will have her be an observational ICU status and continue to check q.2 hours H and H is while we worked to transfer the patient.
[2023-05-14] MEDS: PROCHLORPERAZINE 10 MG/2 ML VIAL 5 MG IV (20:33)
[2023-05-14 20:39] LABS: MRSA (Nasal) PCR Not Detected (Not Detect)
[2023-05-14 21:24] LABS: Hematocrit 22.3 % (36-46); Hemoglobin 7.7 g/dL (12.0-16.0)
--- NOTE | 2023-05-14 21:28 | P.PN_ITS ---
Exam Vital Signs (past 8 hours): - 05/14/23 15:20 05/14/23 15:45 05/14/23 17:00 Temperature 97.8 F 97.3 F L 98 F Pulse Rate 83 95 H 96 H Respiratory Rate 18 18 16 Blood Pressure 100/60 114/66 112/65 Pulse Oximetry Oxygen Delivery Method Oxygen Flow Rate 05/14/23 17:10 05/14/23 17:11 05/14/23 17:11 Temperature Pulse Rate 82 82 Respiratory Rate 14 Blood Pressure 113/67 Pulse Oximetry 96 Oxygen Delivery Method Oxygen Flow Rate 05/14/23 17:30 05/14/23 17:30 05/14/23 18:14 Temperature 98.3 F Pulse Rate 84 111 H Respiratory Rate 17 18 Blood Pressure 111/69 108/68 Pulse Oximetry 95 Oxygen Delivery Method Oxygen Flow Rate 05/14/23 18:18 05/14/23 18:00 05/14/23 18:00 Temperature 98.3 F Pulse Rate 98 H 84 Respiratory Rate 18 16 Blood Pressure 108/68 108/68 Pulse Oximetry 95 Oxygen Delivery Method Oxygen Flow Rate 05/14/23 18:30 05/14/23 18:30 05/14/23 18:45 Temperature Pulse Rate 97 H Respiratory Rate 15 Blood Pressure 102/59 L 96/61 Pulse Oximetry 96 Oxygen Delivery Method Oxygen Flow Rate 05/14/23 18:45 05/14/23 19:00 05/14/23 19:00 Temperature Pulse Rate 96 H 95 H Respiratory Rate 20 19 Blood Pressure 103/65 Pulse Oximetry 96 95 Oxygen Delivery Method Oxygen Flow Rate 05/14/23 19:15 05/14/23 19:15 05/14/23 19:30 Temperature Pulse Rate 101 H Respiratory Rate 15 Blood Pressure 90/60 95/62 Pulse Oximetry 97 Oxygen Delivery Method Oxygen Flow Rate 0 05/14/23 19:30 05/14/23 19:45 05/14/23 19:45 Temperature Pulse Rate 97 H 91 H Respiratory Rate 29 H 18 Blood Pressure 102/58 L Pulse Oximetry 95 97 Oxygen Delivery Method Oxygen Flow Rate 05/14/23 20:00 05/14/23 20:00 05/14/23 20:15 Temperature 98.3 F Pulse Rate 94 H 101 H Respiratory Rate 21 21 Blood Pressure 98/58 L Pulse Oximetry 96 96 Oxygen Delivery Method Oxygen Flow Rate 0 05/14/23 20:15 05/14/23 20:30 05/14/23 20:30 Temperature Pulse Rate 100 H Respiratory Rate 17 Blood Pressure 95/58 L 96/58 L Pulse Oximetry 95 Oxygen Delivery Method Oxygen Flow Rate 05/14/23 19:00 05/14/23 19:15 05/14/23 20:45 Temperature 97.5 F L Pulse Rate 101 H 99 H Respiratory Rate 15 12 Blood Pressure 90/60 Pulse Oximetry 94 Oxygen Delivery Method Room Air Oxygen Flow Rate 05/14/23 20:45 05/14/23 21:00 05/14/23 21:00 Temperature Pulse Rate 95 H Respiratory Rate 19 Blood Pressure 73/48 L 76/47 L Pulse Oximetry 95 Oxygen Delivery Method Oxygen Flow Rate 0 05/14/23 21:15 05/14/23 21:15 Temperature Pulse Rate 104 H Respiratory Rate 20 Blood Pressure 73/47 L Pulse Oximetry 95 Oxygen Delivery Method Oxygen Flow Rate Oxygen Delivery Method Room Air Oxygen Flow Rate 0 Objective Labs 05/14/23 21:16 05/14/23 08:30 Labs: Laboratory Results - last 24 hr 05/14/23 05/14/23 05/14/23 01:45 01:45 01:45 WBC 13.1 H RBC 3.56 L Hgb 11.6 L Hct 33.3 L MCV 93.6 MCH 32.7 MCHC 34.9 RDW 12.7 Plt Count 449 H Neut % (Auto) 69.0 Lymph % (Auto) 19.5 L [place] % (Auto) 9.9 Eos % (Auto) 0.6 L Baso % (Auto) 1.0 Neut # (Auto) 9100 H Lymph # (Auto) 2600 [place] # (Auto) 1300 H Eos # (Auto) 100 Baso # (Auto) 100 Sodium 134 L Potassium 4.0 Chloride 99 Carbon Dioxide 24 BUN 12 Creatinine 0.57 Estimated GFR > 60 BUN/Creatinine Ratio 21.1 Glucose 159 H Lactate Calcium 10.0 Total Bilirubin 0.8 AST 18 ALT 14 Alkaline Phosphatase 71 Total Protein 6.7 Albumin 3.6 Globulin 3.1 Albumin/Globulin Ratio 1.2 Urine Color Urine Appearance Urine pH Ur Specific [place] Urine Protein Urine Glucose (UA) Urine Ketones Urine Occult Blood Urine Nitrate Urine Bilirubin Ur Bilirubin Confirm Urine Urobilinogen Ur Leukocyte Esterase Urine RBC Urine WBC Ur Squamous Epith Cells Ur Transition Epith Cell Urine Bacteria Ur Culture Indicated? Nasal Screen MRSA (PCR) SARS-CoV-2 (PCR) Blood Type A Positive Antibody Screen Negative Crossmatch See Detail 05/14/23 05/14/23 05/14/23 01:45 03:55 03:55 WBC RBC Hgb 9.5 L Hct 27.2 L MCV MCH MCHC RDW Plt Count Neut % (Auto) Lymph % (Auto) [place] % (Auto) Eos % (Auto) Baso % (Auto) Neut # (Auto) Lymph # (Auto) [place] # (Auto) Eos # (Auto) Baso # (Auto) Sodium Potassium Chloride Carbon Dioxide BUN Creatinine Estimated GFR BUN/Creatinine Ratio Glucose Lactate 2.4 H 0.9 Calcium Total Bilirubin AST ALT Alkaline Phosphatase Total Protein Albumin Globulin Albumin/Globulin Ratio Urine Color Urine Appearance Urine pH Ur Specific [place] Urine Protein Urine Glucose (UA) Urine Ketones Urine Occult Blood Urine Nitrate Urine Bilirubin Ur Bilirubin Confirm Urine Urobilinogen Ur Leukocyte Esterase Urine RBC Urine WBC Ur Squamous Epith Cells Ur Transition Epith Cell Urine Bacteria Ur Culture Indicated? Nasal Screen MRSA (PCR) SARS-CoV-2 (PCR) Blood Type Antibody Screen Crossmatch 05/14/23 05/14/23 05/14/23 04:45 05:00 08:30 WBC 9.4 RBC 2.97 L Hgb 8.9 L 9.8 L Hct 25.5 L 27.7 L MCV 93.1 MCH 32.8 MCHC 35.3 RDW 13.2 Plt Count 307 Neut % (Auto) 71.1 Lymph % (Auto) 18.4 L [place] % (Auto) 9.7 Eos % (Auto) 0.2 L Baso % (Auto) 0.6 Neut # (Auto) 6700 Lymph # (Auto) 1700 [place] # (Auto) 900 Eos # (Auto) 0 Baso # (Auto) 100 Sodium Potassium Chloride Carbon Dioxide BUN Creatinine Estimated GFR BUN/Creatinine Ratio Glucose Lactate Calcium Total Bilirubin AST ALT Alkaline Phosphatase Total Protein Albumin Globulin Albumin/Globulin Ratio Urine Color Yellow Urine Appearance Clear Urine pH 5.0 Ur Specific [place] <=1.005 Urine Protein Negative Urine Glucose (UA) Negative Urine Ketones 1+ H Urine Occult Blood 3+ H Urine Nitrate Negative Urine Bilirubin 1+ H Ur Bilirubin Confirm Negative Urine Urobilinogen 0.2 Ur Leukocyte Esterase Negative Urine RBC 0-1/hpf Urine WBC None seen Ur Squamous Epith Cells 0-1 /hpf Ur Transition Epith Cell 0-1/hpf Urine Bacteria None seen Ur Culture Indicated? Cult not indicated Nasal Screen MRSA (PCR) SARS-CoV-2 (PCR) Blood Type Antibody Screen Crossmatch 05/14/23 05/14/23 05/14/23 08:30 14:25 18:00 WBC 8.1 RBC 2.55 L Hgb 8.1 L 8.1 L Hct 23.4 L MCV 91.7 MCH 31.7 MCHC 34.6 RDW 14.0 Plt Count 269 Neut % (Auto) 65.9 Lymph % (Auto) 23.4 L [place] % (Auto) 9.9 Eos % (Auto) 0.4 L Baso % (Auto) 0.4 Neut # (Auto) 5300 Lymph # (Auto) 1900 [place] # (Auto) 800 Eos # (Auto) 0 Baso # (Auto) 0 Sodium 133 L Potassium 4.1 Chloride 105 Carbon Dioxide 24 BUN 9 Creatinine 0.42 L Estimated GFR > 60 BUN/Creatinine Ratio 21.4 Glucose 114 H Lactate Calcium 8.4 Total Bilirubin AST ALT Alkaline Phosphatase Total Protein Albumin Globulin Albumin/Globulin Ratio Urine Color Urine Appearance Urine pH Ur Specific [place] Urine Protein Urine Glucose (UA) Urine Ketones Urine Occult Blood Urine Nitrate Urine Bilirubin Ur Bilirubin Confirm Urine Urobilinogen Ur Leukocyte Esterase Urine RBC Urine WBC Ur Squamous Epith Cells Ur Transition Epith Cell Urine Bacteria Ur Culture Indicated? Nasal Screen MRSA (PCR) SARS-CoV-2 (PCR) Blood Type Antibody Screen Crossmatch 05/14/23 05/14/23 05/14/23 18:30 18:30 21:16 WBC RBC Hgb 7.7 L Hct 22.3 L MCV MCH MCHC RDW Plt Count Neut % (Auto) Lymph % (Auto) [place] % (Auto) Eos % (Auto) Baso % (Auto) Neut # (Auto) Lymph # (Auto) [place] # (Auto) Eos # (Auto) Baso # (Auto) Sodium Potassium Chloride Carbon Dioxide BUN Creatinine Estimated GFR BUN/Creatinine Ratio Glucose Lactate Calcium Total Bilirubin AST ALT Alkaline Phosphatase Total Protein Albumin Globulin Albumin/Globulin Ratio Urine Color Urine Appearance Urine pH Ur Specific [place] Urine Protein Urine Glucose (UA) Urine Ketones Urine Occult Blood Urine Nitrate Urine Bilirubin Ur Bilirubin Confirm Urine Urobilinogen Ur Leukocyte Esterase Urine RBC Urine WBC Ur Squamous Epith Cells Ur Transition Epith Cell Urine Bacteria Ur Culture Indicated? Nasal Screen MRSA (PCR) Not detected SARS-CoV-2 (PCR) Negative Blood Type Antibody Screen Crossmatch [facility] Medical History Ankle fracture, left Cerebrovascular accident History of diverticulitis of colon Social History household members: significant other Smoking Status: Never smoker alcohol intake: current Assessment & Plan Assessment and plan (1) Acute diverticulitis: Status: Acute (2) Lower gastrointestinal hemorrhage: Status: Acute (3) ABLA (acute blood loss anemia): Status: Acute Plan Accepted for transfer to [facility] Discussed with respite coordinator and accepting hospitalist. Stable for transfer. Received 2 PRBCs and getting started third unit. SBP 95-105 since the admission. NS currently at 80 cc / h. Quality VTE Deep Vein Thrombosis/Pulmonary Embolism Present on Admission: No
--- NOTE | 2023-05-14 22:41 | PC.NURSE ---
1900- Pt is unstable at this time we are waiting for transfer out to a higher level of care. Blood VS entered in chart. 1999-3rd unit of PRBC's completed. will recheck H&H at 2099 2029-Pt complaints of pain in Lt upper and Lower quads of abdomen and nausea. PRN medications given IV. Pt is strict NPO at this time. 2044-Pt is very pale and has had several large mulberry stools with large clots noted. Approximately 1700ml of blood since 1899. B/P is low x 3 readings. 73/48, 76/47, 73/47 feel pt's bleeding is worsening. MD made aware of pt's condition and physical changes. stat H&H drawn waiting for results. Pt distal pulses weak and cool at this time. Pt abdominal pain is better but moderate cramping still present. 2099- H&H 7.7/22.5 4th unit of PRBC's sent for will hang prior to transfer. Pt has been accepted to [facility] and will be transferred ACLS with Air transport. 2114- Air team will be here within 10 minutes. 4th PRBC's hung 2 RN verified see chart with VS. Pt remains with soft pressure at this time. HR 104 2129- Air team here to transport Pt. All pt records handed to air team. All pt belongings sent with Pat SO. Bedside report given to flight team. Pt had another large mulberry stool with clots before being transferred to stretcher. 2144- 5th unit of PRBC's sent with flight team for next infusion. 2199-Pt left facility with flight team and chart. all questions answered. Pt was somewhat stable for transfer at present. Pt Last B/P 92/53 P-108 2209-Report called to accepting facility Kavin at [facility] [phone]. Accepting MD is Dr. Leon
--- NOTE | 2023-05-15 07:43 | PC.NURSE ---
Late Entry Event Note 05/14 Patient stable through beginning of shift after completion of 1u of PRBCs. Able to ambulate with crutches to bathroom without difficulty. 1100- patient began having several antonio blood liquid bowel movements with clots. 1400- Patient became symptomatic after ambulating to bathroom, expressed feeling dizzy while laying in bed, patient pale and diaphoretic, VSS stable. hospitalist notified. STAT hemoglobin ordered. 1425- Hemoglobin 8.1, patient with continual antonio blood liquid stool with clots, continued complaint of not feeling well, BP soft with map of 60. Family complaint of lack of physician presence, family updated, hospitalist updated and notified. Hospitalist call out to consulting general surgeon. 1504- Order for blood transfusion 1506- PRN Xanax given after patient request, patient anxious stating I feel like I'm going to 1527- Blood transfusion initiated by this RN, hospitalist and consulting general surgeon at bedside to update family on patient condition and plan. Per MDs recommendation to transfer patient to higher level care facility due to continual antonio blood liquid stools and change of patient condition. 1700- Patient transferred to ICU, completion of of 1u PRBCs. Report given to GUEST EXPERIENCE MANAGER Margret. Patient request to remain on bedpan due to frequent liquid stools. Repeat hemoglobin scheduled for 1800. VSS. Patient with complaint of dizziness, pale and diaphoretic in appearance.
== END 2023-05-14 22:00 | disposition short-term general hospital (02) | DRG 871 ==
LOC: ED 01:51 → AC 04:07 → ICU 16:24
PROVIDERS: Family Medicine; Surgery; Admitting Provider Internal Medicine; Emergency Provider Emergency Medicine; Referring Provider Emergency Medicine; Visit Provider Internal Medicine
DX: A41.9 Sepsis, unspecified organism (principal); K57.33 Diverticulitis of large intestine without perforation or abscess with bleeding; D62 Acute posthemorrhagic anemia; W19.XXXD Unspecified fall, subsequent encounter; S82.102D Unspecified fracture of upper end of left tibia, subsequent encounter for closed fracture with routine healing; F41.9 Anxiety disorder, unspecified; F32.A Depression, unspecified; E03.9 Hypothyroidism, unspecified; S82.892D Other fracture of left lower leg, subsequent encounter for closed fracture with routine healing; Z86.73 Personal history of transient ischemic attack (TIA), and cerebral infarction without residual deficits; R65.20 Severe sepsis without septic shock
CPT/HCPCS: 36415; 36430; 74177; 80048; 80053; 81001; 83605; 85014; 85018; 85025; 86850; 86900; 86901; 87040; 87635; 87797; 96361; 96365; 96375; 96376; 99285; 99291; C9803; P9016; C9113; J0780; J1170; J2405; J2543; Q9967

== ENCOUNTER → 2023-05-25 09:04 | Outpatient (CLI) | payer OTHER, SELFPAY ==
[2023-05-14 06:00] VITALS: BMI 25.8
[2023-05-25 09:53] LABS: HEMOLYSIS < 15 (0-50); Iron 51 ug/dL (37-170)
[2023-05-25 10:05] LABS: Percent Iron Saturation 18 % (15-50); Total Iron Binding Capacity 285 ug/dL (265-497); Transferrin 204 mg/dL (206-381)
[2023-05-25 10:11] LABS: Add Manual Diff / Slide Review NO; Basophils Absolute Auto 0 /uL (0-100); Basophils Percent Auto 0.8 % (0-2); Eosinophils Absolute Auto 200 /uL (0-450); Eosinophils Percent Auto 3.2 % (2-4); Hematocrit 29.5 % (36-46); Hemoglobin 10.2 g/dL (12.0-16.0); Lymphocytes Absolute Auto 1500 /uL (1100-4500); Lymphocytes Percent Auto 29.5 % (25-40); Mean Corpuscular HGB Conc 34.5 % (30-36); Mean Corpuscular Hemoglobin 30.7 PG (26-34); Mean Corpuscular Volume 88.8 fL (80-100); Monocytes Absolute Auto 600 /uL (0-900); Monocytes Percent Auto 10.5 % (3-14); Neutrophils Absolute Auto 2900 /uL (1500-7000); Platelet Count 379 X10^3/uL (150-400); Red Blood Cell Count 3.32 X10^6/uL (4.0-5.2); Red Cell Distribution Width 16.2 % (11.6-14.8); White Blood Cell Count 5.2 X10^3/uL (4.5-11.0)
[2023-05-25 10:22] LABS: Ferritin 124 ng/mL (11-264)
== END ==
DX: D64.9 Anemia, unspecified (principal)
CPT/HCPCS: 36415; 82728; 83540; 83550; 85025

== ENCOUNTER → 2023-06-05 14:14 | Outpatient (CLI) | payer OTHER, SELFPAY ==
[2023-05-14 06:00] VITALS: BMI 25.8
[2023-06-05 15:17] LABS: Add Manual Diff / Slide Review NO; Basophils Absolute Auto 0 /uL (0-100); Basophils Percent Auto 0.7 % (0-2); Eosinophils Absolute Auto 100 /uL (0-450); Eosinophils Percent Auto 3.2 % (2-4); Hematocrit 32.4 % (36-46); Lymphocytes Absolute Auto 1700 /uL (1100-4500); Lymphocytes Percent Auto 38.1 % (25-40); Mean Corpuscular Hemoglobin 29.9 PG (26-34); Monocytes Absolute Auto 400 /uL (0-900); Neutrophils Absolute Auto 2200 /uL (1500-7000); Platelet Count 346 X10^3/uL (150-400); Red Blood Cell Count 3.69 X10^6/uL (4.0-5.2); Red Cell Distribution Width 15.7 % (11.6-14.8); White Blood Cell Count 4.4 X10^3/uL (4.5-11.0)
[2023-06-05 16:06] LABS: HEMOLYSIS < 15 (0-50); Iron 66 ug/dL (37-170)
[2023-06-05 16:17] LABS: Percent Iron Saturation 23 % (15-50); Total Iron Binding Capacity 291 ug/dL (265-497); Transferrin 214 mg/dL (206-381)
[2023-06-05 16:22] LABS: Vitamin D 25 Hydroxy (D3) 49.3 ng/mL (30.0-100.0)
[2023-06-05 16:37] LABS: Cortisol Random 9.97 ug/dL
[2023-06-05 16:41] LABS: Ferritin 142 ng/mL (11-264)
[2023-06-05 16:56] LABS: Vitamin B12 571 pg/mL (239-931)
[2023-06-19 16:29] LABS: Vitamin B6 3.1 ug/L (3.4-65.2)
== END ==
DX: D64.9 Anemia, unspecified (principal); M81.8 Other osteoporosis without current pathological fracture; Z13.9 Encounter for screening, unspecified
CPT/HCPCS: 82306; 82533; 82607; 82627; 82728; 83540; 83550; 84207; 84597; 85025

== ENCOUNTER → 2023-06-24 09:07 | Outpatient (CLI) | payer OTHER, SELFPAY ==
[2023-05-14 06:00] VITALS: BMI 25.8
[2023-06-24 09:41] LABS: Add Manual Diff / Slide Review NO; Basophils Absolute Auto 0 /uL (0-100); Basophils Percent Auto 0.8 % (0-2); Eosinophils Absolute Auto 100 /uL (0-450); Eosinophils Percent Auto 2.8 % (2-4); Hematocrit 36.4 % (36-46); Hemoglobin 12.3 g/dL (12.0-16.0); Lymphocytes Absolute Auto 1600 /uL (1100-4500); Lymphocytes Percent Auto 45.9 % (25-40); Mean Corpuscular HGB Conc 33.9 % (30-36); Mean Corpuscular Hemoglobin 30.8 PG (26-34); Mean Corpuscular Volume 90.8 fL (80-100); Monocytes Absolute Auto 400 /uL (0-900); Monocytes Percent Auto 10.5 % (3-14); Neutrophils Absolute Auto 1400 /uL (1500-7000); Platelet Count 221 X10^3/uL (150-400); Red Blood Cell Count 4.01 X10^6/uL (4.0-5.2); Red Cell Distribution Width 17.3 % (11.6-14.8); White Blood Cell Count 3.6 X10^3/uL (4.5-11.0)
[2023-06-24 09:53] LABS: Alanine Aminotransferase 17 IU/L (<35); Albumin 4.1 g/dL (3.5-5.0); Albumin Globulin Ratio 1.5 (1.0-2.8); Alkaline Phosphatase 78 U/L (38-126); Aspartate Aminotransferase 22 IU/L (14-36); BUN Creatinine Ratio 17.8 (6-22); Bilirubin Total 1.6 mg/dL (0.2-1.3); Blood Urea Nitrogen 8 mg/dL (7-17); Calcium 9.7 mg/dL (8.4-10.2); Carbon Dioxide 24 mmol/L (22-32); Chloride 102 mmol/L (98-107); Estimated Glomerular Filt Rate > 60 mL/min (>60); Globulin 2.7 g/dL (1.7-4.1); Glucose 118 mg/dL (80-110); HEMOLYSIS < 15 (0-50); Potassium 3.9 mmol/L (3.4-5.1); Sodium 136 mmol/L (137-145); Total Protein 6.8 g/dL (6.3-8.2)
[2023-06-24 09:58] LABS: Iron 176 ug/dL (37-170)
[2023-06-24 10:08] LABS: Total Iron Binding Capacity 300 ug/dL (265-497)
[2023-06-24 10:15] LABS: Vitamin D 25 Hydroxy (D3) 51.7 ng/mL (30.0-100.0)
[2023-06-24 10:28] LABS: Ferritin 92 ng/mL (11-264)
[2023-06-24 10:42] LABS: Vitamin B12 315 pg/mL (239-931)
[2023-06-28 21:40] LABS: Glucose-6-Phosphate Dehydrogen 382 (127-427)
[2023-06-29 10:09] LABS: Vitamin B1 79.9 nmol/L (66.5-200.0)
[2023-07-01 15:10] LABS: Vitamin B6 12.6 ug/L (3.4-65.2)
== END ==
DX: N95.1 Menopausal and female climacteric states (principal); D64.9 Anemia, unspecified; R53.83 Other fatigue; E72.11 Homocystinuria
CPT/HCPCS: 36415; 80053; 81291; 82306; 82607; 82728; 82955; 83540; 83550; 84207; 84425; 84597; 85025; 85041

== ENCOUNTER 2023-08-31 02:12 | Emergency (ER) | payer OTHER, SELFPAY ==
[2023-05-14 06:00] VITALS: BMI 25.8
[2023-08-31 02:18] VITALS: BP 156/94; PULSE 98; RESP 16; TEMP 36.6; O2SAT 96; BMI 25.0
--- NOTE | 2023-08-31 02:33 | ED_ITS ---
HPI - General Adult General Chief complaint: Abdominal Pain Stated complaint: ABD PAIN Time Seen by Provider: 08/31/23 02:33 Source: patient Mode of arrival: Family Vehicle History of Present Illness HPI narrative: 58-year-old woman with a history of anxiety and depression was admitted in April of this year for a large diverticular bleed that eventually was transferred down to [facility] with large volume transfusion required cu rrently presents with generalized abdominal pain for a week. Describes it as a constant ache with intermittent episodes of increasing pain worse walking. Has been using Tylenol, Tums, dicyclomine without benefit. Notes normal bowel movements with no blood in the stool. No nausea vomiting, cough, fevers. Related Data Home Medications Medication Instructions Recorded Confirmed alprazolam 0.25 mg tablet 0.25 mg PO Q12HP ##0 03/24/11 05/14/23 escitalopram oxalate 5 mg tablet 5 mg PO Q DAY ##0 03/24/11 05/14/23 (Lexapro) acetaminophen 500 mg tablet 1,000 mg PO Q6HR 05/14/23 05/14/23 levothyroxine 100 mcg tablet 100 mcg PO DAILY 05/14/23 05/14/23 (Synthroid) oxycodone 5 mg tablet 5 mg PO Q6HR pain 05/14/23 05/14/23 Previous Rx's Medication Instructions Recorded levofloxacin 750 mg tablet 750 mg PO DAILY #10 tabs 08/31/23 metronidazole 500 mg tablet 500 mg PO BID #20 tabs 08/31/23 ondansetron 4 mg disintegrating 4 mg PO Q8H PRN nausea and 08/31/23 tablet vomiting #14 tabs Allergies Allergy/AdvReac Type Severity Reaction Status Date / Time No Known Drug Allergies Allergy Verified 04/20/20 06:09 Patient History Medical History Ankle fracture, left Cerebrovascular accident History of diverticulitis of colon Social History household members: significant other Smoking Status: Never smoker alcohol intake: current Smoking Status: Never smoker alcohol intake frequency: 0-2 drinks per day Substance Use Type: does not use Exam Initial Vital Signs Initial Vital Signs: Vital Signs Temperature 97.9 F 08/31/23 02:18 Pulse Rate 98 H 08/31/23 02:18 Respiratory Rate 16 08/31/23 02:18 Blood Pressure 156/94 H 08/31/23 02:18 Pulse Oximetry 96 08/31/23 02:18 Oxygen Delivery Method Room Air 08/31/23 02:18 Course Orders Ordered: ED Orders 08/31/23 02:32 Complete Blood Count AUTO DIFF Stat Comprehensive Metabolic Panel Stat Lipase Stat EKG-12 Lead Stat Ondansetron HCl (Ondansetron 4 Mg Odt) 4 mg PO NOW PRN PRN Reason: Nausea And Vomiting Ondansetron HCl (Ondansetron 4 Mg/2 Ml Inj) 4 mg IV NOW PRN PRN Reason: Nausea And Vomiting Vital Signs Vital signs: Vital Signs - 8 hr 08/31/23 02:18 Temperature 97.9 F Pulse Rate 98 H Respiratory Rate 16 Blood Pressure 156/94 H Pulse Oximetry 96 Oxygen Delivery Method Room Air Medical Decision Making MDM Narrative Medical decision making narrative: CC: Abdominal pain Complicating co-morbidities: Anxiety, depression, large volume blood loss secondary to diverticulitis and diverticular bleed in April of this year (20 units total transfusion with eventual hospital stay), apparently had an area of her colon that was stapled. Had a follow-up colonoscopy in May and was told that she would have partial colectomy sometime in late August, to be scheduled. Data collected from: patient Social determinants of health that may influence the patients condition: Anticipating partial colectomy for diverticular abnormalities later this month, hoping to go to [place] for vacation prior to surgery. Medical records reviewed: Admit notes prior to transfer for the diverticular bleed in April reviewed Differential considered: Recurrent diverticulitis, bowel obstruction, other colitis. Exam documented above, pertinent findings include: Patient is alert and appropriate. Has not been having any black or bloody stools. She notes that her abdominal cramping over the last 1-2 weeks has not increased to the point that dicyclomine is no longer beneficial. She has some mild tenderness in the left lower quadrant without rebound or guarding. Lab Test results independently reviewed as above. Pertinent findings: CBC is unremarkable with white count at 8.6, normal H&H, normal platelets Chemistries show normal renal function, no electrolyte abnormalities. Bilirubin is chronically elevated at 1.6 remainder of liver studies are unremarkable Independently reviewed EKG: Sinus rhythm at a rate of 80, anterior lateral flipped T-waves without other signs of acute ischemia. QTC is elongated at 463 milliseconds. Imaging studies independently reviewed: CT scan is reviewed with the patient. Showing acute diverticulitis involving the distal transverse colon with no focal drainable collection or peritoneum currently. Incidental endometrial abnormalities appreciated. Consultations: Patient is scheduled to have surgery with Dr. Bernadine Mantilla at [facility] in the near future. CT scan was electronically transmitted to [facility], attention Dr. Bernadine Mantilla. Treatments: Oral Flagyl, oral levofloxacin Discussion: 58-year-old woman with complex diverticulitis with large diverticular bleed in April presents with recurrent abdominal pain and CT scan again showing diverticulitis this time the distal transverse colon. There is no evidence of sepsis or acute GI bleeding at this time. I will start her on Cipro and levofloxacin for 10 days giving the complex issues and anticipated surgery in the near future. CT scan is electronically transmitted to [facility] for review by the surgeon. Patient will be contacting her later today regarding scheduled surgical interventions. Patient was planning a trip to [place] in the next 2 weeks and I suggested that if she did choose to do that and got sick in [place] it could end up being significantly complicated. At this time there is no indication for hospitalization, additional imaging or reason for additional blood work. Findings and concerns reviewed with the patient. Strongly encouraged her to follow up with her surgeon in the near future. Questions are answered and she is safe for discharge home Discharge Plan Departure Patient Disposition: Home Clinical Impression: Diverticulitis Instructions: DI for Diverticulitis Activity Restrictions/Additional Instructions: Thank you for coming in today You do have recurrent issues with diverticulitis. I have given you a prescription for metronidazole morning and night for the next 10 days and levofloxacin daily for the next 10 days. Please make sure you are using a stool softener if you feel that you are getting constipated. You can use Tylenol to help with constipation and continue to use the dicyclomine to help with any spasms If you are having any rectal bleeding you need to return to the emergency department I would encourage you to contact your surgeon at [facility], I have electronically transmitted your CT scan from today down to her and I have given you copies of your blood work to share with her. If you find that you are getting worse or develop any new symptoms, please feel free to return to the emergency department for further evaluation. Prescriptions: New metronidazole 500 mg tablet 500 mg PO BID Qty: 20 0RF levofloxacin 750 mg tablet 750 mg PO DAILY Qty: 10 0RF ondansetron 4 mg tablet,disintegrating 4 mg PO Q8H PRN (Reason: nausea and vomiting) Qty: 14 0RF No Action escitalopram oxalate [Lexapro] 5 MG tablet 5 mg PO Q DAY Qty: 0 alprazolam 0.25 MG tablet 0.25 mg PO Q12HP Qty: 0 levothyroxine [Synthroid] 100 mcg tablet 100 mcg PO DAILY oxycodone 5 mg tablet 5 mg PO Q6HR acetaminophen 500 mg tablet 1,000 mg PO Q6HR Referrals: Monika Bustillo ARNP [Primary Care Provider] - Stand Alone Forms: Patient Portal/API, Work Release Note
[2023-08-31 02:40] LABS: Add Manual Diff / Slide Review NO; Basophils Absolute Auto 100 /uL (0-100); Basophils Percent Auto 0.8 % (0-2); Eosinophils Absolute Auto 100 /uL (0-450); Eosinophils Percent Auto 1.3 % (2-4); Hematocrit 38.3 % (36-46); Hemoglobin 13.2 g/dL (12.0-16.0); Lymphocytes Absolute Auto 2500 /uL (1100-4500); Lymphocytes Percent Auto 28.6 % (25-40); Mean Corpuscular HGB Conc 34.5 % (30-36); Mean Corpuscular Hemoglobin 31.1 PG (26-34); Monocytes Absolute Auto 800 /uL (0-900); Monocytes Percent Auto 9.3 % (3-14); Neutrophils Absolute Auto 5100 /uL (1500-7000); Platelet Count 302 X10^3/uL (150-400); Red Blood Cell Count 4.26 X10^6/uL (4.0-5.2); Red Cell Distribution Width 13.9 % (11.6-14.8); White Blood Cell Count 8.6 X10^3/uL (4.5-11.0)
[2023-08-31 02:55] LABS: Alanine Aminotransferase 10 IU/L (<35); Albumin 4.1 g/dL (3.5-5.0); Albumin Globulin Ratio 1.2 (1.0-2.8); Alkaline Phosphatase 109 U/L (38-126); BUN Creatinine Ratio 11.6 (6-22); Bilirubin Total 1.6 mg/dL (0.2-1.3); Blood Urea Nitrogen 5 mg/dL (7-17); Calcium 9.9 mg/dL (8.4-10.2); Carbon Dioxide 24 mmol/L (22-32); Chloride 101 mmol/L (98-107); Estimated Glomerular Filt Rate > 60 mL/min (>60); Globulin 3.5 g/dL (1.7-4.1); Glucose 118 mg/dL (80-110); HEMOLYSIS < 15 (0-50); Lipase 50 U/L (23-300); Sodium 136 mmol/L (137-145); Total Protein 7.6 g/dL (6.3-8.2)
--- NOTE | 2023-08-31 03:53 | DI.CT.S_ITS ---
PROCEDURE: CT ABDOMEN PELVIS W CON INDICATIONS: Left lower quadrant abdominal pain TECHNIQUE: After the administration of intravenous contrast, axial sections acquired from the lung bases to the pubic symphysis. Coronal and sagittal reformats were performed. For radiation dose reduction, the following was used: automated exposure control, adjustment of mA and/or kV according to patient size. COMPARISON: [facility], CT, ABDOMEN/PELVIS WITH CONTRAST, 10/07/2007, 14:57. [facility], CT, CT ABDOMEN PELVIS W CON, 05/14/2023, 1:56. FINDINGS: Image quality: Diagnostic. Lower Chest: No significant findings. ABDOMEN: Liver: No solid mass. Gallbladder: No radiopaque gallstones or wall thickening. Biliary ducts: No biliary dilation. Pancreas: No ductal dilation. Spleen: Size is within normal limits. Adrenal Glands: No adrenal nodules. Kidneys and Ureters: No hydronephrosis. No solid mass. No complex renal cystic lesion which requires follow up. Stomach and Bowel: There are innumerable colonic diverticula. There is marked focal thickening and pericolonic stranding in the distal transverse colon, consistent with acute diverticulitis. Peritoneum: No abnormal intraperitoneal fluid. No free air. Ventral Wall: There is a small fat containing periumbilical hernia. Abdominal Nodes: No retroperitoneal or mesenteric adenopathy by size criteria. Vessels: Aorta and inferior vena cava are normal in size. PELVIS: Pelvic Organs: Uterus is normal in size. Endometrium appears thickened. Ovaries are not well seen. No free fluid in pelvis.. Bladder: Unremarkable. Pelvic Nodes: No enlarged lymph nodes. Miscellaneous: No inguinal hernias are seen. Bones: No aggressive osseous abnormality. IMPRESSION: 1. Extensive colonic diverticulosis. Acute diverticulitis of the distal transverse colon. No diverticular abscess. After adequate treatment of acute illness, consider a follow-up CT or colonoscopy as colon cancer could have a similar appearance. 2. Endometrium appears thickened measuring 2.9 cm. A differential diagnosis is subserosal fibroid. Recommend nonurgent pelvic ultrasound for follow-up. 3. Small fat containing periumbilical hernia. No significant discrepancy with the material handler 1st shift radiology preliminary report. Dictated by: Tamera Mejias M.D. on 08/31/2023 at 7:41 Approved by: Tamera Mejias M.D. on 08/31/2023 at 10:04
[2023-08-31] MEDS: HYDROMORPHONE 0.5 MG INJ IV (04:04)
[2023-08-31] MEDS: ONDANSETRON 4 MG/2 ML INJ IV (04:05)
[2023-08-31 04:53] VITALS: BP 139/88; PULSE 83; RESP 16; O2SAT 94
[2023-08-31] MEDS: levoFLOXacin 250 MG TABLET 750 MG PO (05:21)
[2023-08-31] MEDS: metroNIDAZOLE 500 MG TABLET PO (05:22)
[2023-08-31 05:28] LABS: Bacteria Urine None Seen; Culture Indicated Urine Cult Not Indicated; RBC Urine 0-1/HPF (0-5/HPF); Squamous Epithelial Cell Urine None Seen (0-5/HPF); WBC Urine None Seen (0-5/HPF)
[2023-08-31 05:47] VITALS: BP 141/96; PULSE 86; RESP 16; TEMP 36.7; O2SAT 96
[2023-09-01 14:53] LABS: Aspartate Aminotransferase 23 IU/L (14-36)
== END 2023-08-31 05:50 | disposition home or self-care (01) ==
PROVIDERS: Emergency Provider Emergency Medicine
DX: K57.32 Diverticulitis of large intestine without perforation or abscess without bleeding (principal)
CPT/HCPCS: 36415; 74177; 80053; 81003; 81015; 83690; 85025; 93005; 96374; 96375; 99284; J1170; J2405; Q9967

== ENCOUNTER 2023-10-19 11:16 | Emergency (ER) | payer OTHER, SELFPAY ==
[2023-05-14 06:00] VITALS: BMI 25.8
[2023-10-19 11:20] VITALS: BP 110/78; PULSE 125; RESP 22; TEMP 36.6; O2SAT 89; BMI 24.2
--- NOTE | 2023-10-19 11:25 | PC.NURSE ---
Pt moved to hallway bed. Once lying down, sats 94% on RA and heart rate 95.
--- NOTE | 2023-10-19 11:40 | DI.RAD.S_ITS ---
PROCEDURE: XR CHEST 1V INDICATIONS: suspected sepsis TECHNIQUE: One view of the chest was acquired. COMPARISON: [facility], CR, XR CHEST 2V, 06/06/2018, 10:25. FINDINGS: Surgical changes and devices: None. Lungs and pleura: Lung volumes are low. Basilar atelectasis is present bilaterally. There may be a small left effusion. The upper lungs are well aerated. Mediastinum: Mediastinal contours appear normal. Heart size is normal. Bones and chest wall: No suspicious bony lesions. Overlying soft tissues appear unremarkable. IMPRESSION: Low lung volumes, atelectasis, and questionable small left effusion. Dictated by: Xiao Ochoa M.D. on 10/19/2023 at 12:28 Approved by: Xiao Ochoa M.D. on 10/19/2023 at 12:29
[2023-10-19] MEDS: SODIUM CHLORIDE 0.9% 1,000 ML 1000 ML IV (11:47)
[2023-10-19 11:56] LABS: Add Manual Diff / Slide Review NO; Basophils Absolute Auto 0 /uL (0-100); Basophils Percent Auto 0.4 % (0-2); Eosinophils Absolute Auto 0 /uL (0-450); Eosinophils Percent Auto 0.2 % (2-4); Hematocrit 38.6 % (36-46); Hemoglobin 13.2 g/dL (12.0-16.0); Lymphocytes Absolute Auto 1900 /uL (1100-4500); Lymphocytes Percent Auto 15.8 % (25-40); Mean Corpuscular HGB Conc 34.3 % (30-36); Mean Corpuscular Hemoglobin 31.2 PG (26-34); Monocytes Absolute Auto 1200 /uL (0-900); Monocytes Percent Auto 9.8 % (3-14); Neutrophils Absolute Auto 9100 /uL (1500-7000); Neutrophils Percent Auto 73.8 % (50-75); Platelet Count 809 X10^3/uL (150-400); Red Blood Cell Count 4.23 X10^6/uL (4.0-5.2); Red Cell Distribution Width 16.3 % (11.6-14.8); White Blood Cell Count 12.3 X10^3/uL (4.5-11.0)
[2023-10-19 12:05] LABS: INR 1.2 (0.9-1.3); Prothrombin Time 13.3 SECONDS (9.4-12.5)
[2023-10-19 12:08] LABS: Lactate (Lactic Acid) 1.1 mmol/L (0.7-2.1); PTT Partial Thromboplastin Tim 32 SECONDS (25.1-36.5)
[2023-10-19 12:09] LABS: Alanine Aminotransferase 19 IU/L (<35); Albumin 4.1 g/dL (3.5-5.0); Albumin Globulin Ratio 1.2 (1.0-2.8); Alkaline Phosphatase 80 U/L (38-126); Aspartate Aminotransferase 20 IU/L (14-36); BUN Creatinine Ratio 19.2 (6-22); Bilirubin Total 1.1 mg/dL (0.2-1.3); Blood Urea Nitrogen 10 mg/dL (7-17); Calcium 9.2 mg/dL (8.4-10.2); Carbon Dioxide 21 mmol/L (22-32); Chloride 87 mmol/L (98-107); Estimated Glomerular Filt Rate > 60 mL/min (>60); Globulin 3.4 g/dL (1.7-4.1); Glucose 120 mg/dL (80-110); HEMOLYSIS < 15 (0-50); Lipase 253 U/L (23-300); Sodium 132 mmol/L (137-145); Total Protein 7.5 g/dL (6.3-8.2)
[2023-10-19] MEDS: HYDROMORPHONE 0.5 MG INJ IV (12:09)
[2023-10-19] MEDS: ONDANSETRON 4 MG/2 ML INJ IV (12:09)
[2023-10-19 12:10] LABS: Platelet Estimate Increased on smear
--- NOTE | 2023-10-19 12:13 | ED_ITS ---
HPI - Abdominal Pain General Chief Complaint: Abdominal Pain Stated Complaint: can't hold food done, after colon procedure Time Seen by Provider: 10/19/23 11:45 Source: patient Mode of arrival: Wheelchair History of Present Illness HPI narrative: Patient is 58-year-old female history of hypothyroid diverticulitis with complications presents today after colectomy. She was discharged from [facility] on the 12 of October she had surgery on the . She has been doing okay she has been tolerating liquids she has been passing gas and having bowel movements. Yesterday she started having nausea vomiting. She is noted to be hypoxic at 89% and tachycardic with heart rate of 125. Complaining of severe abdominal pain. No bleeding. She denies any fever or chills. She has been trying to increase her diet with food and banana but today pain is out of control. She denies any chest pain. Related Data Home Medications Medication Instructions Recorded Confirmed alprazolam 0.25 mg tablet 0.25 mg PO Q12HP ##0 03/24/11 05/14/23 escitalopram oxalate 5 mg tablet 5 mg PO Q DAY ##0 03/24/11 05/14/23 (Lexapro) acetaminophen 500 mg tablet 1,000 mg PO Q6HR 05/14/23 05/14/23 levothyroxine 100 mcg tablet 100 mcg PO DAILY 05/14/23 05/14/23 (Synthroid) oxycodone 5 mg tablet 5 mg PO Q6HR pain 05/14/23 05/14/23 Previous Rx's Medication Instructions Recorded levofloxacin 750 mg tablet 750 mg PO DAILY #10 tabs 08/31/23 metronidazole 500 mg tablet 500 mg PO BID #20 tabs 08/31/23 ondansetron 4 mg disintegrating 4 mg PO Q8H PRN nausea and 08/31/23 tablet vomiting #14 tabs Allergies Allergy/AdvReac Type Severity Reaction Status Date / Time No Known Drug Allergies Allergy Verified 04/20/20 06:09 Patient History Medical History Ankle fracture, left Cerebrovascular accident History of diverticulitis of colon Social History household members: significant other Smoking Status: Never smoker alcohol intake: current Smoking Status: Never smoker alcohol intake frequency: 0-2 drinks per day Substance Use Type: does not use Exam Initial Vital Signs Initial Vital Signs: Vital Signs Temperature 98 F 10/19/23 11:20 Pulse Rate 125 H 10/19/23 11:20 Respiratory Rate 22 10/19/23 11:20 Blood Pressure 110/78 10/19/23 11:20 Pulse Oximetry 89 L 10/19/23 11:20 Oxygen Delivery Method Room Air 10/19/23 11:20 GENERAL: Alert 58-year-old female and in no acute distress. HEENT: Head atraumatic,EOMI, pupils reactive, face symmetric, moist mucous membranes CARDIOVASCULAR: Regular rate and rhythm without murmurs, rubs or gallops. RESPIRATORY: Breath sounds equal bilaterally, no wheezes rales or rhonchi. ABDOMEN: Soft, mild distention diffusely tender incision sites appear clean and dry without evidence of infection EXTREMITIES: Normal range of motion, no clubbing or edema. Neurovascularly intact NEUROLOGICAL: Alert and oriented x4.Normal gait and speech. SKIN: Warm, dry, no laceration, no petechiae, no rashes or lesions. Course Orders Ordered: ED Orders 10/19/23 11:30 BNP [NT-proBNP (BNP-Adult 18+)] Stat Complete Blood Count AUTO DIFF Stat Comprehensive Metabolic Panel Stat Lactate (Lactic Acid) Stat Lipase Stat PTT Partial Thromboplastin Brandan Stat Procalcitonin Stat Prothrombin Time INR Stat Troponin & CK Cardiac Panel Stat 10/19/23 11:40 XR chest 1V Stat RT Consult Eval and Treat NOW 10/19/23 12:03 EKG-12 Lead Stat 10/19/23 12:13 CT angio chest abdomen pelvis Stat 10/19/23 12:16 Blood Culture Stat 10/19/23 13:30 Trop I [Troponin I] Stat 10/19/23 14:28 EKG-12 Lead Stat Discontinued Medications Hydromorphone HCl (Hydromorphone 0.5 Mg Inj) 0.5 mg IV NOW ONE Stop: 10/19/23 12:04 Last Admin: 10/19/23 12:09 Dose: 0.5 mg Documented By: AMBERLY Hydromorphone HCl (Hydromorphone 1 Mg Inj) 1 mg IV NOW ONE Stop: 10/19/23 14:07 Last Admin: 10/19/23 14:28 Dose: 1 mg Documented By: JARROD Sodium Chloride (Normal Saline 0.9%) 1,000 mls @ 1,000 mls/hr IV BOLUS ONE Stop: 10/19/23 12:39 Last Infusion: 10/19/23 13:11 Dose: Infused Documented By: Admin: 10/19/23 11:47 Dose: 1,000 mls/hr Documented By: RODRIGUEZ Sodium Chloride (Normal Saline 0.9%) 1,000 mls @ 125 mls/hr IV CONT SCARLETT Last Admin: 10/19/23 14:28 Dose: 125 mls/hr Documented By: JARROD Ondansetron HCl (Ondansetron 4 Mg/2 Ml Inj) 4 mg IV NOW PRN PRN Reason: Nausea And Vomiting Last Admin: 10/19/23 12:09 Dose: 4 mg Documented By: AMBERLY Ondansetron HCl (Ondansetron 4 Mg Odt) 4 mg SL NOW PRN PRN Reason: Nausea And Vomiting Vital Signs Vital signs: Vital Signs - 8 hr 10/19/23 15:30 10/19/23 15:31 10/19/23 15:32 Temperature 98.6 F Pulse Rate 93 H 83 83 Respiratory Rate 22 20 20 Blood Pressure 128/82 132/76 119/74 Pulse Oximetry 93 95 98 Oxygen Delivery Method Room Air Room Air MDM - Abdominal Pain Lab Data 10/19/23 11:30 10/19/23 11:30 Labs: Lab Results 10/19/23 10/19/23 Range/Units 11:30 13:30 WBC 12.3 H (4.5-11.0) X10^3/uL RBC 4.23 (4.0-5.2) X10^6/uL Hgb 13.2 (12.0-16.0) g/dL Hct 38.6 (36-46) % MCV 91.0 (80-100) fL MCH 31.2 (26-34) PG MCHC 34.3 (30-36) % RDW 16.3 H (11.6-14.8) % Plt Count 809 H (150-400) X10^3/uL Neut % (Auto) 73.8 (50-75) % Lymph % (Auto) 15.8 L (25-40) % [place] % (Auto) 9.8 (3-14) % Eos % (Auto) 0.2 L (2-4) % Baso % (Auto) 0.4 (0-2) % Neut # (Auto) 9100 H (7310-9637) /uL Lymph # (Auto) 1900 (4112-3879) /uL [place] # (Auto) 1200 H (0-900) /uL Eos # (Auto) 0 (0-450) /uL Baso # (Auto) 0 (0-100) /uL Platelet Estimate Increased on smear RBC Morphology Not Reportable PT 13.3 H (9.4-12.5) SECONDS INR 1.2 (0.9-1.3) APTT 32 (25.1-36.5) SECONDS Sodium 132 L (137-145) mmol/L Potassium 3.0 L (3.4-5.1) mmol/L Chloride 87 L (98-107) mmol/L Carbon Dioxide 21 L (22-32) mmol/L BUN 10 (7-17) mg/dL Creatinine 0.52 (0.52-1.04) mg/dL Estimated GFR > 60 (>60) mL/min BUN/Creatinine Ratio 19.2 (6-22) Glucose 120 H (80-110) mg/dL Lactate 1.1 (0.7-2.1) mmol/L Calcium 9.2 (8.4-10.2) mg/dL Total Bilirubin 1.1 (0.2-1.3) mg/dL AST 20 (14-36) IU/L ALT 19 (<35) IU/L Alkaline Phosphatase 80 (38-126) U/L Total Creatine Kinase 24 L (30-135) U/L Troponin I 0.057 H 0.065 H (0.01-0.034) ng/mL NT-Pro-B Natriuret Pep 480 H (<125) pg/mL Total Protein 7.5 (6.3-8.2) g/dL Albumin 4.1 (3.5-5.0) g/dL Globulin 3.4 (1.7-4.1) g/dL Albumin/Globulin Ratio 1.2 (1.0-2.8) Lipase 253 (23-300) U/L Procalcitonin 0.26 (<0.5) ng/mL Point of care testing: Urine Dip Bedside Urine Glucose Negative Bedside Urine Bilirubin - Negative Bedside Urine Ketone +++ 80 Urine Specific [place] 1.010 Bedside Urine Occult Blood - Negative Bedside Urine pH 6.0 Bedside Urine Protein - Negative Bedside Urine Urobilinogen - Negative Bedside Urine Nitrite - Negative Bedside Urine Leukocytes - Negative Esterase Imaging Data CT scan - abdomen/pelvis: Radiologist's Impression: PROCEDURE: CT ANGIO CHEST ABDOMEN PELVIS INDICATIONS: hypoxic with vomtiing post colectomy TECHNIQUE: Precontrast 5 mm thick sections acquired from the lung apices to the iliac crests. After the administration of intravenous contrast, 2.5 mm thick sections again acquired from the lung apices to the iliac crests. Maximum intensity projection (MIP) oblique sagittal and coronal reformats were then acquired. For radiation dose reduction, the following was used: automated exposure control. COMPARISON: [facility], CT, CT ABDOMEN PELVIS W CON, 08/31/2023, 4:10. FINDINGS: Image quality: Diagnostic. AORTA: No aortic aneurysm. No acute aortic syndrome. CHEST: Lower Neck: No enlarged lymph nodes. Thyroid: No thyroid nodules which require sonographic evaluation. Axillae: No enlarged lymph nodes. Chest Wall: Unremarkable. Lungs and Pleura: No pneumothorax or pleural effusions. Atelectatic lung is present within the dependent aspect of the right lower lobe. Mild atelectasis is present at the left lung base. A calcified granuloma is present at the left lung base. Heart: Heart size is mildly enlarged. No pericardial effusion. Thoracic Vessels: Pulmonary arteries demonstrate normal size. Mediastinum and Ghada: No enlarged lymph nodes. Esophagus: No wall thickening. No hiatal hernia. ABDOMEN: Liver: No solid mass. Gallbladder: No radiopaque gallstones or wall thickening. Biliary ducts: No biliary dilation. Pancreas: No ductal dilation. Spleen: Size is within normal limits. Adrenal Glands: No adrenal nodules. Kidneys and Ureters: No hydronephrosis. No solid mass. No complex renal cystic lesion which requires follow up. Stomach and Bowel: There is marked distension of the small bowel beginning at the level of the duodenum. The bowel is gas and fluid-filled. No mucosal thickening. The patient is status post left hemicolectomy. A portion of the bowel is decompressed in the left lower quadrant which may represent the terminal ileum, but is difficult to characterize. The cecum is markedly dilated with gas. The distal colon (remaining sigmoid colon?) is decompressed. Peritoneum: No abnormal intraperitoneal fluid. No free air. Ventral Wall: There are multiple small fat containing midline ventral hernias. Abdominal Nodes: No retroperitoneal or mesenteric adenopathy by size criteria. Vessels: Inferior vena cava is normal in size. PELVIS: Pelvic Organs: Unremarkable. Bladder: Unremarkable. Pelvic Nodes: No enlarged lymph nodes. Miscellaneous: No inguinal hernias are seen. Bones: Unremarkable. IMPRESSION: 1. No aortic aneurysm, dissection, or mesenteric stenosis or occlusion. No findings to suggest mesenteric ischemia. 2. Diffuse small bowel dilatation with the exception of the terminal ileum which appears decompressed. There is also marked gaseous distension of the cecum, but the distal colon is decompressed. Differential considerations include bowel obstruction at the surgical anastomosis versus postoperative ileus. 3. Atelectatic lung bilaterally. REFERENCE DELETE FROM FINAL REPORT Ddx: Takayasu arteritis or giant cell arteritis (wall should enhance). Intraluminal thrombus (lower attenuation on non-contrast CT, irregular internal contour, irregular thick calcifications, typically found in aneurysmal segments. Dictated by: Xiao Ochoa M.D. on 10/19/2023 at 12:50 ECG Data Attestation: I personally reviewed and interpreted this ECG as follows: Prior ECG tracings: available for review Interpretation: Normal sinus rhythm rate 92 NC interval 176 QRS 108 QTC 724 pronounced T-wave inversions noted in lead 3 AVF [address]VL no obvious ST elevations or depressions previous EKG on August 31 showed mild T-wave inversion in lead 3 only EKG 2. Persistent T-wave inversions lead [address] changes similar to prior QTC improved at 5:30 a.m. [facility] Narrative Medical decision making narrative: Patient is 58-year-old female presents today post colectomy for complicated diverticulitis. She is having increased abdominal pain. Initially she is noted to be hypoxic at 89% but it quickly improves. She denies any significant chest pain or shortness of breath. Really complaining of abdominal pain but feels like she is having bowel movements. Blood work has been reviewed WBC 12.3, sodium 132, potassium 3.0 chloride 87, carbon dioxide 21, BUN 10 lactate 1.1, troponin 0.057 with repeat 0.065, BNP 480, procalcitonin 0.[address] angio chest abdomen pelvis not show pulmonary embolism does show concern for ileus versus bowel obstruction Patient presents today with ongoing abdominal pain post colectomy. She is found to have ileus versus obstruction she is not actively vomiting or nauseous really complaining of pain. I see no need for NG at this time. She does have pretty significant EKG findings of T-wave inversion with elevated troponin. Patient reports that when she was at she did have cardiac workup. She has no known car coronary artery disease troponin is not elevated at NSTEMI level. 1400 Dr. Dominguez, surgeon on-call at [facility] updated on CT results and patient's symptoms. Aware of EKG findings and pending troponins. Requests that patient be transferred to [facility] Critical Care Time Critical Care Time Critical Care Time: Yes Total Critical Care Time: 30 Attestation: The high probability of a clinically significant, sudden or life threatening deterioration of the [cardiovascular] system(s) required my full and direct attention, intervention and personal management. The aggregate critical care time was 30 minutes. This time is in addition to time spent performing reported procedures but includes the following: [x] Data Review and interpretation [x] Patient assessment and monitoring of vital signs [x] Documentation [x] Medication orders and management Discharge Plan [facility] Imp[facility]: Small bowel obstruction, Elevated troponin Prescriptions: No Action escitalopram oxalate [Lexapro] 5 MG tablet 5 mg PO Q DAY Qty: 0 alprazolam 0.25 MG tablet 0.25 mg PO Q12HP Qty: 0 levothyroxine [Synthroid] 100 mcg tablet 100 mcg PO DAILY oxycodone 5 mg tablet 5 mg PO Q6HR acetaminophen 500 mg tablet 1,000 mg PO Q6HR metronidazole 500 mg tablet 500 mg PO BID Qty: 20 0RF levofloxacin 750 mg tablet 750 mg PO DAILY Qty: 10 0RF ondansetron 4 mg tablet,disintegrating 4 mg PO Q8H PRN (Reason: nausea and vomiting) Qty: 14 0RF Referrals: Monika Bustillo ARNP [Primary Care Provider] -
[2023-10-19 12:25] LABS: Procalcitonin 0.26 ng/mL (<0.5)
[2023-10-19 12:43] LABS: NT-proBNP (BNP-Adult 18+) 480 pg/mL (<125)
[2023-10-19 13:41] LABS: Creatine Kinase 24 U/L (30-135)
[2023-10-19 13:55] LABS: Troponin I 0.057 ng/mL (0.01-0.034)
[2023-10-19 14:09] LABS: Troponin I 0.065 ng/mL (0.01-0.034)
[2023-10-19] MEDS: HYDROMORPHONE 1 MG INJ IV (14:28)
[2023-10-19] MEDS: SODIUM CHLORIDE 0.9% 1,000 ML 125 ML IV (14:28)
--- NOTE | 2023-10-19 14:56 | PC.NURSE ---
this RN spoke with Maria Fernanda at [facility] and can arrive anytime. they can arrive at the ED and a bed will be assigned when they arrive. Dr. Mejia, charge accounts audit clerk and primary RN aware.
[2023-10-19 15:30] VITALS: BP 128/82; PULSE 93; RESP 22; TEMP 37; O2SAT 93
[2023-10-19 15:31] VITALS: BP 132/76; PULSE 83; RESP 20; O2SAT 95
[2023-10-19 15:32] VITALS: BP 119/74; PULSE 83; RESP 20; O2SAT 98
== END 2023-10-19 15:35 | disposition short-term general hospital (02) ==
PROVIDERS: Emergency Provider Emergency Medicine
DX: K56.609 Unspecified intestinal obstruction, unspecified as to partial versus complete obstruction (principal); R79.89 Other specified abnormal findings of blood chemistry; R00.0 Tachycardia, unspecified; R09.02 Hypoxemia
CPT/HCPCS: 36415; 71045; 71275; 74174; 80053; 81003; 82550; 83605; 83690; 83880; 84145; 84484; 85025; 85610; 85730; 87040; 93005; 96361; 96374; 96375; 96376; 99284; J1170; J2405; Q9967

== ENCOUNTER 2023-10-27 18:49 | Emergency (ER) | payer OTHER, SELFPAY ==
[2023-05-14 06:00] VITALS: BMI 25.8
[2023-10-27] VITALS (16 sets, daily range): BP systolic 115–168; BP diastolic 75–99; PULSE 91–113; RESP 15–19; TEMP 36.6; O2SAT 88–99; BMI 25.0
[2023-10-27 19:52] LABS: Add Manual Diff / Slide Review NO; Basophils Absolute Auto 0 /uL (0-100); Basophils Percent Auto 0.3 % (0-2); Eosinophils Absolute Auto 100 /uL (0-450); Eosinophils Percent Auto 0.7 % (2-4); Hematocrit 40.7 % (36-46); Lymphocytes Absolute Auto 1700 /uL (1100-4500); Lymphocytes Percent Auto 19.2 % (25-40); Mean Corpuscular HGB Conc 34.5 % (30-36); Mean Corpuscular Hemoglobin 31.4 PG (26-34); Mean Corpuscular Volume 91.2 fL (80-100); Monocytes Absolute Auto 1400 /uL (0-900); Monocytes Percent Auto 16.3 % (3-14); Neutrophils Absolute Auto 5600 /uL (1500-7000); Neutrophils Percent Auto 63.5 % (50-75); Platelet Count 569 X10^3/uL (150-400); Red Blood Cell Count 4.47 X10^6/uL (4.0-5.2); Red Cell Distribution Width 17.2 % (11.6-14.8); White Blood Cell Count 8.7 X10^3/uL (4.5-11.0)
--- NOTE | 2023-10-27 19:59 | ED.ABDPAIN ---
HPI - Abdominal Pain General Chief Complaint: Abdominal Pain Stated Complaint: abdominal pain, n/v/d recent bowel surgery Time Seen by Provider: 10/27/23 19:43 Source: patient, family and EMS Mode of arrival: EMS Limitations: no limitations History of Present Illness HPI narrative: 58-year-old female with history of hypothyroid, [facility] after discharge from [facility] patient had developed obstruction after post colectomy on the 09 of October. Patient started on TPN had 2 doses at home on Monday. Fevers but has had increasing abdominal pain distention and vomiting which has been mostly clear. No bowel movements no flatus.. Patient's incisions have been clean dry without signs of infection. She has been urinating she states it has not been dark. She has taken oxycodone for pain, Zofran PRN and alprazolam. No reported allergies. No tobacco, occasional alcohol, no recreational drugs. Related Data Home Medications Medication Instructions Recorded Confirmed alprazolam 0.25 mg tablet 0.25 mg PO Q12HP ##0 03/24/11 05/14/23 escitalopram oxalate 5 mg tablet 5 mg PO Q DAY ##0 03/24/11 05/14/23 (Lexapro) acetaminophen 500 mg tablet 1,000 mg PO Q6HR 05/14/23 05/14/23 levothyroxine 100 mcg tablet 100 mcg PO DAILY 05/14/23 05/14/23 (Synthroid) oxycodone 5 mg tablet 5 mg PO Q6HR pain 05/14/23 05/14/23 Previous Rx's Medication Instructions Recorded levofloxacin 750 mg tablet 750 mg PO DAILY #10 tabs 08/31/23 metronidazole 500 mg tablet 500 mg PO BID #20 tabs 08/31/23 ondansetron 4 mg disintegrating 4 mg PO Q8H PRN nausea and 08/31/23 tablet vomiting #14 tabs Allergies Allergy/AdvReac Type Severity Reaction Status Date / Time No Known Drug Allergies Allergy Verified 04/20/20 06:09 Review of Systems Review of Systems ROS Unobtainable: All systems reviewed & are unremarkable except as noted in HPI and below Patient History Medical History History of diverticulitis of colon Ankle fracture, left Cerebrovascular accident Social History household members: significant other Smoking Status: Never smoker alcohol intake: current Smoking Status: Never smoker alcohol intake frequency: 0-2 drinks per day Substance Use Type: does not use Exam Narrative Exam Narrative: GENERAL: Alert and oriented x three, moderate distress. HEENT: Head normocephalic, atraumatic, EOMI, pupils reactive, face symmetric, moist mucous membranes NECK: Supple, full range of motion CARDIOVASCULAR: Regular rate and rhythm without murmurs, rubs or gallops. RESPIRATORY: Breath sounds equal bilaterally, no wheezes rales or rhonchi. ABDOMEN: Soft, distended, generalized tenderness.. Normoactive bowel sounds all 4 quadrants. No guarding or rebound, rigidity, no mass, patient's incisions from laparoscopic surgery appear clean dry and intact without any erythema or signs of infection. : No CVA tenderness EXTREMITIES: Normal range of motion, no clubbing or edema. Neurovascularly intact NEUROLOGICAL: Cranial nerves II through XII grossly intact. Moving all extremities SKIN: Warm, dry, no petechiae, no rashes or lesions. Initial Vital Signs Initial Vital Signs: Vital Signs Temperature 97.8 F 10/27/23 18:58 Pulse Rate 113 H 10/27/23 18:58 Respiratory Rate 16 10/27/23 18:58 Blood Pressure 115/75 10/27/23 18:58 Pulse Oximetry 89 L 10/27/23 18:58 Oxygen Delivery Method Room Air 10/27/23 18:58 Course Orders Ordered: ED Orders 10/27/23 18:48 Complete Blood Count AUTO DIFF Stat Comprehensive Metabolic Panel Stat Lipase Stat 10/27/23 19:44 EKG-12 Lead Stat 10/27/23 19:50 Ammonia (NH3) Stat 10/27/23 20:00 Ictotest Urine Stat Urine Culture Stat Urine Microscopic Stat 10/27/23 20:09 CT abdomen pelvis w con Stat Sodium Chloride (Normal Saline 0.9%) 1,000 mls @ 125 mls/hr IV CONT SCARLETT Last Admin: 10/27/23 22:40 Dose: 125 mls/hr Documented By: AB Metoclopramide HCl (Metoclopramide 10 Mg/2 Ml Inj) 10 mg IV Q6HR PRN PRN Reason: Nausea And Vomiting Last Admin: 10/27/23 22:40 Dose: 10 mg Documented By: Discontinued Medications Sodium Chloride (Normal Saline 0.9%) 1,000 mls @ 1,000 mls/hr IV BOLUS ONE Stop: 10/27/23 21:08 Last Infusion: 10/27/23 21:27 Dose: Infused Documented By: Admin: 10/27/23 20:41 Dose: 1,000 mls/hr Documented By: BERE Ketorolac Tromethamine (Ketorolac 30 Mg/Ml Vial) 15 mg IV NOW ONE Stop: 10/27/23 20:14 Last Admin: 10/27/23 20:41 Dose: 15 mg Documented By: BERE Morphine Sulfate (Morphine 4 Mg/Ml Inj) 4 mg IV NOW ONE Stop: 10/27/23 22:31 Last Admin: 10/27/23 22:40 Dose: 4 mg Documented By: Vital Signs Vital signs: Vital Signs - 8 hr 10/27/23 18:58 10/27/23 19:02 10/27/23 19:04 Temperature 97.8 F Pulse Rate 113 H 109 H Respiratory Rate 16 17 Blood Pressure 115/75 Pulse Oximetry 89 L 94 94 Oxygen Delivery Method Room Air Nasal Cannula Oxygen Flow Rate 2 10/27/23 19:30 10/27/23 19:30 10/27/23 19:57 Temperature Pulse Rate 107 H 97 H Respiratory Rate 18 19 Blood Pressure 130/89 Pulse Oximetry 95 Oxygen Delivery Method Oxygen Flow Rate 10/27/23 19:57 10/27/23 20:00 10/27/23 20:01 Temperature Pulse Rate 96 H Respiratory Rate 18 Blood Pressure 168/96 H 154/95 H Pulse Oximetry Oxygen Delivery Method Oxygen Flow Rate 10/27/23 20:01 10/27/23 20:46 10/27/23 20:48 Temperature Pulse Rate 97 H 100 H Respiratory Rate 19 Blood Pressure 154/99 H Pulse Oximetry Oxygen Delivery Method Oxygen Flow Rate 10/27/23 20:48 10/27/23 21:00 10/27/23 21:30 Temperature Pulse Rate 93 H 94 H Respiratory Rate 16 18 Blood Pressure 145/91 H Pulse Oximetry 98 98 Oxygen Delivery Method Oxygen Flow Rate 10/27/23 21:30 10/27/23 22:00 10/27/23 22:00 Temperature Pulse Rate 91 H 100 H Respiratory Rate 17 15 Blood Pressure 138/88 Pulse Oximetry 99 97 Oxygen Delivery Method Oxygen Flow Rate 10/27/23 22:30 10/27/23 22:30 10/27/23 23:03 Temperature Pulse Rate 101 H 93 H Respiratory Rate 18 18 Blood Pressure 126/88 Pulse Oximetry 95 88 L Oxygen Delivery Method Oxygen Flow Rate 10/27/23 23:30 10/27/23 23:35 10/27/23 23:35 Temperature Pulse Rate 98 H 98 H Respiratory Rate 16 15 Blood Pressure 131/85 Pulse Oximetry 97 97 Oxygen Delivery Method Oxygen Flow Rate 10/28/23 00:00 10/28/23 00:00 10/28/23 00:30 Temperature Pulse Rate 103 H Respiratory Rate 15 Blood Pressure 123/83 124/94 H Pulse Oximetry 96 Oxygen Delivery Method Oxygen Flow Rate 10/28/23 00:30 10/28/23 01:00 10/28/23 01:00 Temperature Pulse Rate 106 H 101 H Respiratory Rate 17 18 Blood Pressure 122/88 Pulse Oximetry 97 96 Oxygen Delivery Method Oxygen Flow Rate MDM - Abdominal Pain Lab Data 10/27/23 18:48 10/27/23 18:48 Labs: Lab Results 10/27/23 10/27/23 10/27/23 Range/Units 18:48 19:50 20:00 WBC 8.7 (4.5-11.0) X10^3/uL RBC 4.47 (4.0-5.2) X10^6/uL Hgb 14.0 (12.0-16.0) g/dL Hct 40.7 (36-46) % MCV 91.2 (80-100) fL MCH 31.4 (26-34) PG MCHC 34.5 (30-36) % RDW 17.2 H (11.6-14.8) % Plt Count 569 H (150-400) X10^3/uL Neut % (Auto) 63.5 (50-75) % Lymph % (Auto) 19.2 L (25-40) % [place] % (Auto) 16.3 H (3-14) % Eos % (Auto) 0.7 L (2-4) % Baso % (Auto) 0.3 (0-2) % Neut # (Auto) 5600 (8340-1985) /uL Lymph # (Auto) 1700 (3724-3754) /uL [place] # (Auto) 1400 H (0-900) /uL Eos # (Auto) 100 (0-450) /uL Baso # (Auto) 0 (0-100) /uL Sodium 141 (137-145) mmol/L Potassium 4.0 (3.4-5.1) mmol/L Chloride 99 (98-107) mmol/L Carbon Dioxide 34 H (22-32) mmol/L BUN 10 (7-17) mg/dL Creatinine 0.51 L (0.52-1.04) mg/dL Estimated GFR > 60 (>60) mL/min BUN/Creatinine Ratio 19.6 (6-22) Glucose 126 H (80-110) mg/dL Calcium 10.7 H (8.4-10.2) mg/dL Total Bilirubin 0.7 (0.2-1.3) mg/dL AST 31 (14-36) IU/L ALT 25 (<35) IU/L Alkaline Phosphatase 80 (38-126) U/L Ammonia < 9 L (9-30) umol/L Total Protein 9.0 H (6.3-8.2) g/dL Albumin 4.5 (3.5-5.0) g/dL Globulin 4.5 H (1.7-4.1) g/dL Albumin/Globulin Ratio 1.0 (1.0-2.8) Lipase 290 (23-300) U/L Ur Bilirubin Confirm TNP Urine RBC 0-1/hpf (0-5/HPF) Urine WBC 0-1/hpf (0-5/HPF) Ur Squamous Epith Cells 0-1 /hpf (0-5/HPF) Urine Bacteria Occasional (0-1) (None) Hyaline Casts 0-1/lpf (None) Urine Mucus 2+ H (Negative) Ur Culture Indicated? Specimen cultured Vol Urine Centrifuged 10ml (spun) Point of care testing: Urine Dip Bedside Urine Glucose Negative Bedside Urine Bilirubin +++ 4 Bedside Urine Ketone +/- 5 Urine Specific [place] 1.020 Bedside Urine Occult Blood - Negative Bedside Urine pH 5.5 Bedside Urine Protein + 30 Bedside Urine Urobilinogen - Negative Bedside Urine Nitrite - Negative Bedside Urine Leukocytes + [address] scan - abdomen/pelvis: Radiologist's Impression: Liza Olivares??58??F??1965 ? Allergy/Adv: No Known Drug Allergies Close Abdomen/Pelvis CT (Signed) Mateo Lopez - 10/27/23 Chest/Abdomen/Pelvis CTA (Signed) Xiao Ochoa - 10/19/23 Chest X-Ray (Signed) Xiao Ochoa - 10/19/23 Abdomen/Pelvis CT (Signed) Tamera Mejias - 08/31/23 Telemetry Strips 05/14/23 Abdomen/Pelvis CT (Signed) Bryce Nicole - 05/14/23 Tibia/Fibula X-Ray (Signed) LudwigVinh sotomayor - 05/02/23 Ankle X-Ray (Signed) LudwigVinh sotomayor - 05/02/23 Upper Extremity Ultrasound (Signed) Prince Duarte - 10/03/22 Brain MRI (Signed) Ro Huitron - 04/20/20 Head/Neck CTA (Signed) Vashti Corona - 04/20/[address] (Signed) Vashti Corona - 04/20/20 Bone Densitometry 05/13/19 Chest X-Ray (Signed) Tony Hutson - 06/06/18 Launch?[place] [address] CT Scan Report Signed Patient: Liza Olivares MR#: [id number] : 1965 Acct:[id number] Age/Sex: 58 / F Date of Service: 10/27/23 Loc: ED Accession Number: [id number] Procedure: CT abdomen pelvis w con Ordering Provider: Milena Morris D.O. PROCEDURE: CT ABDOMEN PELVIS W CON INDICATIONS: vomiting, recent colectomy, no bm, distended, concern obstru TECHNIQUE: After the administration of intravenous contrast, axial sections acquired from the lung bases to the pubic symphysis. Coronal and sagittal reformats were performed. For radiation dose reduction, the following was used: automated exposure control, adjustment of mA and/or kV according to patient size. COMPARISON: [facility], CT, CT ABDOMEN PELVIS W CON, 08/31/2023, 4:10. FINDINGS: Image quality: Diagnostic. Lower Chest: Right lower lobe atelectasis versus consolidation. Linear atelectasis versus scarring within the left lower and lingula. ABDOMEN: Liver: No solid mass. Subcentimeter hypodensity within the liver, too small technique characterize. Gallbladder: No radiopaque gallstones or wall thickening. Biliary ducts: No biliary dilation. Pancreas: No ductal dilation. Spleen: Size is within normal limits. Adrenal Glands: No adrenal nodules. Kidneys and Ureters: No hydronephrosis. No solid mass. No complex renal cystic lesion which requires follow up. Stomach and Bowel: Multiple dilated loops of small bowel with air-fluid levels the small bowel measure up to 4.1 cm. Possible transition point within the mid abdomen (2/59). There is an additional area of possible transition within the distal colon (2/54). Diverticulosis with wall thickening and inflammation within pelvis, may be reactive or represent diverticulitis. Peritoneum: Trace free fluid within the pelvis is likely reactive. No extraluminal gas is seen. Ventral Wall: No significant ventral hernia. Abdominal Nodes: No retroperitoneal or mesenteric adenopathy by size criteria. Vessels: Aorta and inferior vena cava are normal in size. PELVIS: Pelvic Organs: Unremarkable. Bladder: No bladder wall thickening, accounting for underdistention. Pelvic Nodes: No enlarged lymph nodes. Miscellaneous: No inguinal hernias are seen. Bones: No aggressive osseous abnormality. Degenerative changes of the spine. Decreased osseous mineralization. IMPRESSION: 1. Dilated loops of small bowel with air-fluid levels with a possible transition point in the mid abdomen concerning for obstruction. History of recent colectomy. There appears to be dilated loops of colon with a possible transition point involving the distal colon. 2. Diverticulosis within the residual colon in the pelvis with wall thickening and inflammation, may be reactive or represent diverticulitis. 3. Linear atelectasis and scarring in the lower lung tam. Possible consolidation in the right lower lobe. Dictated by: Mateo Lopez M.D. on 10/27/2023 at 21:06 Approved by: Mateo Lopez M.D. on 10/27/2023 at 21:14 ECG Data Attestation: I personally reviewed and interpreted this ECG as follows: Prior ECG tracings: available for review Interpretation: Sinus rhythm rate of 100 LA 180 QRS 82 QTC 472. No acute ST elevation, T-wave inverted in 2 and AVF. Patient has prior from 10/19/2023 which appears similar. No acute changes from prior. MDM Narrative Medical decision making narrative: 58-year-old female with recent colectomy, patient required return to [facility] where she had initially was started on TPN and was discharged 2 days ago on Monday. Patient appears to clinically be obstructed and shows changes consistent with the on CT scanning here today. Labs show white count 8, hemoglobin of 14 platelets of 569. Sodium 141 potassium of 4, chloride 99, CO2 is 34 creatinine 0.51, glucose of 126 calcium elevated at 10.7. LFTs are otherwise negative the negative lipase and ammonia is normal. Urine shows positive leukocyte esterase no nitrates, positive bilirubin 1 RBC, 1 white cell 2+ mucus was sent for culture. Patient received fluids, Toradol. No additional vomiting so far. Contacted [facility], Dr. Carnes accepts for transfer. Plan for NG tube in any persistent vomiting. Unlikely to have bed assignment tonight but will re-contact when on this available. They asked for re-contacted things are worsening. Patient accepted at , has been hemodynamically stable with no additional emesis here in the department. Discharge Plan Departure Patient Disposition: [facility] Clinical Impression: Bowel obstruction Prescriptions: No Action escitalopram oxalate [Lexapro] 5 MG tablet 5 mg PO Q DAY Qty: 0 alprazolam 0.25 MG tablet 0.25 mg PO Q12HP Qty: 0 levothyroxine [Synthroid] 100 mcg tablet 100 mcg PO DAILY oxycodone 5 mg tablet 5 mg PO Q6HR acetaminophen 500 mg tablet 1,000 mg PO Q6HR metronidazole 500 mg tablet 500 mg PO BID Qty: 20 0RF levofloxacin 750 mg tablet 750 mg PO DAILY Qty: 10 0RF ondansetron 4 mg tablet,disintegrating 4 mg PO Q8H PRN (Reason: nausea and vomiting) Qty: 14 0RF Referrals: Monika Bustillo ARNP [Primary Care Provider] -
[2023-10-27 20:00] LABS: Alanine Aminotransferase 25 IU/L (<35); Albumin 4.5 g/dL (3.5-5.0); Alkaline Phosphatase 80 U/L (38-126); Aspartate Aminotransferase 31 IU/L (14-36); BUN Creatinine Ratio 19.6 (6-22); Bilirubin Total 0.7 mg/dL (0.2-1.3); Blood Urea Nitrogen 10 mg/dL (7-17); Calcium 10.7 mg/dL (8.4-10.2); Carbon Dioxide 34 mmol/L (22-32); Chloride 99 mmol/L (98-107); Estimated Glomerular Filt Rate > 60 mL/min (>60); Globulin 4.5 g/dL (1.7-4.1); Glucose 126 mg/dL (80-110); HEMOLYSIS < 15 (0-50); Lipase 290 U/L (23-300); Sodium 141 mmol/L (137-145)
--- NOTE | 2023-10-27 20:09 | DI.CT.S_ITS ---
PROCEDURE: CT ABDOMEN PELVIS W CON INDICATIONS: vomiting, recent colectomy, no bm, distended, concern obstru TECHNIQUE: After the administration of intravenous contrast, axial sections acquired from the lung bases to the pubic symphysis. Coronal and sagittal reformats were performed. For radiation dose reduction, the following was used: automated exposure control, adjustment of mA and/or kV according to patient size. COMPARISON: [facility], CT, CT ABDOMEN PELVIS W CON, 08/31/2023, 4:10. FINDINGS: Image quality: Diagnostic. Lower Chest: Right lower lobe atelectasis versus consolidation. Linear atelectasis versus scarring within the left lower and lingula. ABDOMEN: Liver: No solid mass. Subcentimeter hypodensity within the liver, too small technique characterize. Gallbladder: No radiopaque gallstones or wall thickening. Biliary ducts: No biliary dilation. Pancreas: No ductal dilation. Spleen: Size is within normal limits. Adrenal Glands: No adrenal nodules. Kidneys and Ureters: No hydronephrosis. No solid mass. No complex renal cystic lesion which requires follow up. Stomach and Bowel: Multiple dilated loops of small bowel with air-fluid levels the small bowel measure up to 4.1 cm. Possible transition point within the mid abdomen (2/59). There is an additional area of possible transition within the distal colon (2/54). Diverticulosis with wall thickening and inflammation within pelvis, may be reactive or represent diverticulitis. Peritoneum: Trace free fluid within the pelvis is likely reactive. No extraluminal gas is seen. Ventral Wall: No significant ventral hernia. Abdominal Nodes: No retroperitoneal or mesenteric adenopathy by size criteria. Vessels: Aorta and inferior vena cava are normal in size. PELVIS: Pelvic Organs: Unremarkable. Bladder: No bladder wall thickening, accounting for underdistention. Pelvic Nodes: No enlarged lymph nodes. Miscellaneous: No inguinal hernias are seen. Bones: No aggressive osseous abnormality. Degenerative changes of the spine. Decreased osseous mineralization. IMPRESSION: 1. Dilated loops of small bowel with air-fluid levels with a possible transition point in the mid abdomen concerning for obstruction. History of recent colectomy. There appears to be dilated loops of colon with a possible transition point involving the distal colon. 2. Diverticulosis within the residual colon in the pelvis with wall thickening and inflammation, may be reactive or represent diverticulitis. 3. Linear atelectasis and scarring in the lower lung tam. Possible consolidation in the right lower lobe. Dictated by: Mateo Lopez M.D. on 10/27/2023 at 21:06 Approved by: Mateo Lopez M.D. on 10/27/2023 at 21:14
[2023-10-27 20:11] LABS: Ammonia (NH3) < 9 umol/L (9-30)
[2023-10-27 20:35] LABS: Bacteria Urine Occasional (0-1); RBC Urine 0-1/HPF (0-5/HPF); Squamous Epithelial Cell Urine 0-1 /HPF (0-5/HPF); Urine Volume 10mL (spun); WBC Urine 0-1/HPF (0-5/HPF)
[2023-10-27 20:36] LABS: Culture Indicated Urine Specimen Cultured; Hyaline Casts Urine 0-1/LPF; Mucus Urine 2+ (Negative)
[2023-10-27] MEDS: KETOROLAC 30 MG/ML VIAL 15 MG IV (20:41)
[2023-10-27] MEDS: SODIUM CHLORIDE 0.9% 1,000 ML 1000 ML IV (20:41)
--- NOTE | 2023-10-27 22:12 | PC.NURSE ---
[id number]-Pushed images and faxed face sheet to in hopes to transfer there
[2023-10-27] MEDS: SODIUM CHLORIDE 0.9% 1,000 ML 125 ML IV (22:40)
[2023-10-27] MEDS: MORPHINE 4 MG/ML INJ IV (22:40)
[2023-10-27] MEDS: METOCLOPRAMIDE 10 MG/2 ML INJ IV (22:40)
--- NOTE | 2023-10-27 23:00 | PC.NURSE ---
report given to ARMANDO Evans at
[2023-10-28] VITALS: BP 123/83; PULSE 103; RESP 15; O2SAT 96
[2023-10-28 00:30] VITALS: BP 124/94; PULSE 106; RESP 17; O2SAT 97
[2023-10-28 01:00] VITALS: BP 122/88; PULSE 101; RESP 18; O2SAT 96
== END 2023-10-28 01:17 | disposition short-term general hospital (02) ==
PROVIDERS: Emergency Provider Emergency Medicine
DX: K56.609 Unspecified intestinal obstruction, unspecified as to partial versus complete obstruction (principal); R11.10 Vomiting, unspecified; R10.9 Unspecified abdominal pain; Z98.890 Other specified postprocedural states
CPT/HCPCS: 74177; 80053; 81003; 81015; 82140; 83690; 83735; 84100; 84478; 85025; 86140; 87086; 93005; 96361; 96374; 96375; 99284; 99285; J1885; J2270; J2765; Q9967

== ENCOUNTER → 2023-12-08 10:34 | Outpatient (CLI) | payer OTHER, SELFPAY ==
[2023-05-14 06:00] VITALS: BMI 25.8
--- NOTE | 2023-12-08 10:35 | DI.CT.S_ITS ---
PROCEDURE: CT ABDOMEN PELVIS W CON INDICATIONS: Diverticulitis of intestine, part unspecified, wit TECHNIQUE: After the administration of intravenous contrast, axial sections acquired from the lung bases to the pubic symphysis. Coronal and sagittal reformats were performed. For radiation dose reduction, the following was used: automated exposure control, adjustment of mA and/or kV according to patient size. COMPARISON: [facility], [place], PELVIC COMPLETE, 12/05/2011, 10:09. [facility], CT, CT ABDOMEN PELVIS W CON, 10/27/2023, 20:26. FINDINGS: Image quality: Diagnostic. Lower Chest: Right lower lobe calcified granuloma. No hiatal hernia. Previously seen right lower lobe consolidation has resolved. ABDOMEN: Liver: No solid mass. Subcentimeter hypodensity in segment 4A is too small to characterize (2/15). Gallbladder: No radiopaque gallstones or wall thickening. Biliary ducts: No biliary dilation. Pancreas: No ductal dilation. Spleen: Size is within normal limits. Adrenal Glands: No adrenal nodules. Kidneys and Ureters: No hydronephrosis. No solid mass. No complex renal cystic lesion which requires follow up. Stomach the, bowel and peritoneum: Status post partial colectomy. Compared to prior CT dated October 27 2023, interval resolution of bowel obstruction. Extensive colonic diverticulosis with persistent diverticulitis with a fistulous tract extending from the sigmoid colon into the presacral space (263). Interval increased size and evolution of presacral rim enhancing fluid collection measuring 5.8 x 5.7 x 5.6 cm with increased amount of air (2/66, 68, 5/43). Inferior to this collection, there are innumerable multiloculated fluid collections measuring up to 1.4 x 1.3 cm with soft tissue stranding and inflammation in the presacral space (4/37, 2/76). Ventral Wall: No significant ventral hernia. Abdominal Nodes: No retroperitoneal or mesenteric adenopathy by size criteria. Vessels: Aorta and inferior vena cava are normal in size. Patent portal, hepatic, splenic and bilateral renal veins. PELVIS: Pelvic Organs: Heterogeneous enhancement within the uterus with masslike appearance measuring approximately 4.7 x 3.8 cm (2/73). Bladder: No bladder wall thickening, accounting for underdistention. Pelvic Nodes: No enlarged lymph nodes. Miscellaneous: No inguinal hernias are seen. Bones: No aggressive osseous abnormality. No acute fractures. IMPRESSION: 1. Compared to CT dated October 27, 2023, interval resolution of bowel obstruction. 2. Persistent diverticulitis in the sigmoid colon with a fistulous tract into presacral space. Interval increased size and evolution of presacral rim enhancing fluid collection measuring 5.8 x 5.7 x 5.6 cm with increased amount of air. Inferior to this collection, there are innumerable multiloculated fluid collections with soft tissue stranding and inflammation in the presacral space. 3. Previously seen right lower lobe consolidation has resolved. 4. Heterogeneous enhancement within the uterus with masslike appearance measuring 4.7 x 3.8 cm. Findings may represent a uterine fibroid as seen on pelvic ultrasound dated December 05, 2011. A nonemergent pelvic ultrasound can be performed for further evaluation, at clinical discretion These findings were discussed with Mikala Pearl RN (Dr. Mantilla's RN at [facility]) on December 08, 2023 at 1:10 p.m.. Dictated by: Olaf Mendiola M.D. on 12/08/2023 at 12:48 Approved by: Olaf Mendiola M.D. on 12/08/2023 at 13:18
[2023-12-08 11:18] LABS: Estimated Glomerular Filt Rate > 60 mL/min (>60)
== END ==
PROVIDERS: Radiology Diagnostic Radiology; Referring Provider Colon & Rectal Surgery; Visit Provider Colon & Rectal Surgery
DX: K57.32 Diverticulitis of large intestine without perforation or abscess without bleeding (principal); U07.1 COVID-19; K63.2 Fistula of intestine; Z90.49 Acquired absence of other specified parts of digestive tract
CPT/HCPCS: 36415; 74177; 82565; Q9967